=== PATIENT | female | born 1975 | race Caucasian/White ===

== ENCOUNTER 2017-04-30 22:15 | Emergency (ER) | payer OTHER ==
[~2017-04-30] VITALS: Ht 154.9 cm; Wt 68.0 kg
[~2017-04-30 22:15] MED LIST: ACETAMINOPHEN-H1 TA2 PO; ATIVAN1 MG PO; BACTRIM DS 8001 TA1 PO; BACTRIM DS 8001 TAB PO; BENTYL10 MG PO; CEPHALEXIN500 M1 PO; CLEOCIN150 MG PO; CORDROL20 MG PO; DAYPRO600 M1 PO; DEPAKOTE DR500 MG PO; FLEXERIL10 MG PO; GEODON20 MG PO; HYDROCODONE BIT1 T11 PO; IBU800 MG PO; KEFLEX 500 MG E2 CAP PO; LOPRESSOR100 M1 PO; LOPRESSOR25 MG PO; Motrin,Rufen800 MG PO; NAPROSYN500 MG PO; NEURONTIN300 MG PO; NKHM; NORCO 5-325 TA1 EACH PO; NOVAPLUS V0.09 MG/Ac IH; PREDNISONE50 MG PO; RISPERDAL0.25 MG PO; SYMBICORT1 AE1 INH; TOPAMAX100 M1 PO; TOPROL XL100 MG PO; TRAZODO50 MG PO; VALIUM10 MG PO; ZYPREXA15 MG PO
[2017-04-30 22:26] VITALS: BP 121/82
[2017-04-30 23:03] LABS: BASO % 0.3 % (0.0-1.0); EOS % 0.3 % (1.0-4.0); HEMATOCRIT 44.1 % (37.0-47.0); HEMOGLOBIN 15.1 g/dl (12.0-16.0); LYMPH # 1.9 10*3/uL (1.3-4.4); LYMPH % 30.8 % (27.0-41.0); MEAN CELL VOLUME 85.3 fl (81.0-99.0); MEAN CORPUSCULAR HGB 29.2 pg (27.0-31.0); MEAN CORPUSCULAR HGB CONC 34.2 g/dl (33.0-37.0); MEAN PLATELET VOLUME 10.2 fl (9.6-12.3); MONO # 0.4 10*3/uL (0.1-1.0); MONO % 6.5 % (3.0-9.0); NEUT # 3.9 10*3/uL (2.3-7.9); NEUT % 61.8 % (47.0-73.0); PLATELET COUNT AUTOMATED 295 10*3/uL (130-400); RED BLOOD COUNT 5.17 10*6/uL (4.10-5.10); RED CELL DISTRI WIDTH 14.1 % (0-14.5); WHITE BLOOD COUNT 6.3 10*3/uL (4.8-10.8)
[2017-04-30 23:18] LABS: ALBUMIN 3.5 gm/dl (3.1-4.5); ALKALINE PHOSPHATASE 66 U/L (45-117); BUN 8 mg/dl (7-24); CHLORIDE 102 mmol/L (98-107); CREATININE 0.83 mg/dL (0.55-1.02); LIPASE 151 U/L (73-393); POTASSIUM 3.4 mmol/L (3.5-5.1); SGOT/AST 19 IU/L (3-35); SGPT/ALT 19 U/L (12-78); SODIUM 137 mmol/L (136-145)
[2017-05-01] MEDS ORDERED: ROBITUSSIN DM 105 ML PO (00:51)
[2017-05-01] MEDS ORDERED: PREDNISONE20 M1 PO (00:51)
== END 2017-05-01 01:04 | disposition left against medical advice (07) ==
LOC: ED 22:15
PROVIDERS: Nurse Practitioner Family
DX: B34.9 Viral infection, unspecified (principal); F17.200 Nicotine dependence, unspecified, uncomplicated

== ENCOUNTER 2017-09-04 04:40 | Inpatient (IN) | payer OTHER ==
[~2017-09-04] VITALS: Ht 152.4 cm; Wt 79.9 kg
[~2017-09-04 04:40] MED LIST changes: +PREDNISONE20 M1 PO; +ROBITUSSIN DM 105 ML PO
[2017-09-04 04:45] VITALS: BP 127/75
[2017-09-04 05:32] LABS: BASO % 0.2 % (0.0-1.0); EOS # 0.1 10*3/uL (0.0-0.4); EOS % 0.9 % (1.0-4.0); HEMATOCRIT 43.8 % (37.0-47.0); HEMOGLOBIN 14.5 g/dl (12.0-16.0); LYMPH # 2.5 10*3/uL (1.3-4.4); LYMPH % 17.3 % (27.0-41.0); MEAN CELL VOLUME 86.2 fl (81.0-99.0); MEAN CORPUSCULAR HGB 28.5 pg (27.0-31.0); MEAN CORPUSCULAR HGB CONC 33.1 g/dl (33.0-37.0); MEAN PLATELET VOLUME 10.3 fl (9.6-12.3); MONO # 1.3 10*3/uL (0.1-1.0); MONO % 9.1 % (3.0-9.0); NEUT # 10.5 10*3/uL (2.3-7.9); NEUT % 72.1 % (47.0-73.0); PLATELET COUNT AUTOMATED 299 10*3/uL (130-400); RED BLOOD COUNT 5.08 10*6/uL (4.10-5.10); RED CELL DISTRI WIDTH 13.4 % (0-14.5); WHITE BLOOD COUNT 14.6 10*3/uL (4.8-10.8)
[2017-09-04 05:46] LABS: ALBUMIN 3.2 gm/dl (3.1-4.5); ALKALINE PHOSPHATASE 94 U/L (45-117); BUN 6 mg/dl (7-24); CHLORIDE 105 mmol/L (98-107); CREATININE 0.68 mg/dL (0.55-1.02); POTASSIUM 3.7 mmol/L (3.5-5.1); SGOT/AST 83 IU/L (3-35); SGPT/ALT 154 U/L (12-78); SODIUM 137 mmol/L (136-145); TOTAL PROTEIN 8.1 gm/dL (6.4-8.2)
[2017-09-04 06:44] VITALS: BP 96/55; BP 98/56
[2017-09-04 08:00] VITALS: BP 94/61
[2017-09-04 12:00] VITALS: BP 137/65
[2017-09-04 16:00] VITALS: BP 145/66
== END 2017-09-04 18:09 | disposition left against medical advice (07) | DRG 603 ==
LOC: ED 04:40 → 5E 06:36
PROVIDERS: Emergency Medicine
PROC: 0H9DXZZ Drainage of Right Lower Arm Skin, External Approach (ICD-10-PCS; principal; 2017-09-04)
DX: L03.113 Cellulitis of right upper limb (principal); E44.1 Mild protein-calorie malnutrition; E66.01 Morbid (severe) obesity due to excess calories; L02.413 Cutaneous abscess of right upper limb; R74.0 Nonspecific elevation of levels of transaminase and lactic acid dehydrogenase [LDH]; F11.10 Opioid abuse, uncomplicated; F19.10 Other psychoactive substance abuse, uncomplicated; J44.9 Chronic obstructive pulmonary disease, unspecified; F20.9 Schizophrenia, unspecified; F17.210 Nicotine dependence, cigarettes, uncomplicated; I10 Essential (primary) hypertension; F32.9 Major depressive disorder, single episode, unspecified; Z98.891 History of uterine scar from previous surgery; Z98.51 Tubal ligation status; Z71.6 Tobacco abuse counseling; Z82.49 Family history of ischemic heart disease and other diseases of the circulatory system; Z79.899 Other long term (current) drug therapy; Z84.89 Family history of other specified conditions; Z68.34 Body mass index [BMI] 34.0-34.9, adult

== ENCOUNTER 2018-05-23 12:36 | Emergency (ER) | payer OTHER ==
[2018-05-23] MEDS ORDERED: INVEGA SUSTENN117 MG IM (12:40)
[2018-05-23] MEDS ORDERED: PROVENTIL HFA6.7 GM INH (13:18)
[2018-05-23] MEDS ORDERED: NAPROSYN500 MG PO (13:18)
[2018-05-23] MEDS ORDERED: TYLENOL325 M1 PO (13:18)
[2018-05-23] MEDS ORDERED: AMOXICILLIN500 M3 PO (13:18)
== END 2018-05-23 13:20 | disposition home or self-care (01) ==
LOC: ED 12:36
DX: J20.9 Acute bronchitis, unspecified (principal); K02.9 Dental caries, unspecified; I10 Essential (primary) hypertension; J44.9 Chronic obstructive pulmonary disease, unspecified; E78.5 Hyperlipidemia, unspecified; F17.200 Nicotine dependence, unspecified, uncomplicated

== ENCOUNTER 2018-06-07 15:09 | Emergency (ER) | payer OTHER ==
[~2018-06-07] VITALS: Ht 152.4 cm; Wt 90.7 kg
[2018-06-07 15:09] VITALS: BP 108/53
[~2018-06-07 15:09] MED LIST changes: +AMOXICILLIN500 M3 PO; +INVEGA SUSTENN117 MG IM; +PROVENTIL HFA6.7 GM INH; +TYLENOL325 M1 PO
[2018-06-07 17:02] LABS: BASO % 0.3 % (0.0-1.0); EOS # 0.2 10*3/uL (0.0-0.4); EOS % 1.6 % (1.0-4.0); HEMATOCRIT 43.6 % (37.0-47.0); HEMOGLOBIN 14.5 g/dl (12.0-16.0); LYMPH # 2.8 10*3/uL (1.3-4.4); LYMPH % 23.9 % (27.0-41.0); MEAN CELL VOLUME 91.6 fl (81.0-99.0); MEAN CORPUSCULAR HGB 30.5 pg (27.0-31.0); MEAN CORPUSCULAR HGB CONC 33.3 g/dl (33.0-37.0); MEAN PLATELET VOLUME 10.3 fl (9.6-12.3); MONO # 0.9 10*3/uL (0.1-1.0); MONO % 7.5 % (3.0-9.0); NEUT # 7.7 10*3/uL (2.3-7.9); NEUT % 66.4 % (47.0-73.0); PLATELET COUNT AUTOMATED 231 10*3/uL (130-400); RED BLOOD COUNT 4.76 10*6/uL (4.10-5.10); RED CELL DISTRI WIDTH 13.4 % (0-14.5); WHITE BLOOD COUNT 11.6 10*3/uL (4.8-10.8)
[2018-06-07 17:14] LABS: ACT PARTIAL THROMBO TIME 20.4 SECONDS (20.8-31.5); INTERNATIONAL NORM RATIO 1.3 (2.0-3.5)
[2018-06-07 17:28] LABS: ALBUMIN 3.2 gm/dl (3.1-4.5); BUN 10 mg/dl (7-24); CHLORIDE 104 mmol/L (98-107); CREATININE 0.83 mg/dL (0.55-1.02); POTASSIUM 3.7 mmol/L (3.5-5.1); SGOT/AST 54 IU/L (3-35); SGPT/ALT 80 U/L (12-78); SODIUM 136 mmol/L (136-145)
[2018-06-07 17:30] LABS: ALKALINE PHOSPHATASE 76 U/L (45-117); TOTAL PROTEIN 7.6 gm/dL (6.4-8.2)
== END 2018-06-07 19:34 | disposition left against medical advice (07) ==
LOC: ED 15:09
PROVIDERS: Physician Assistant
DX: M54.5 Low back pain (principal); F11.10 Opioid abuse, uncomplicated; F17.200 Nicotine dependence, unspecified, uncomplicated; Z79.899 Other long term (current) drug therapy

== ENCOUNTER 2018-06-12 21:20 | Emergency (ER) | payer OTHER ==
[~2018-06-12] VITALS: Ht 165.1 cm; Wt 104.3 kg
[2018-06-12 21:21] VITALS: BP 117/56
[2018-06-12] MEDS ORDERED: IBU800 MG PO (21:27)
[2018-06-12] MEDS ORDERED: PREDNISONE50 MG PO (21:27)
[2018-06-12] MEDS ORDERED: CYCLOBENZAPRINE10 MG PO (21:27)
[2018-06-12 22:08] LABS: BASO % 0.4 % (0.0-1.0); EOS # 0.2 10*3/uL (0.0-0.4); EOS % 1.9 % (1.0-4.0); HEMATOCRIT 46.5 % (37.0-47.0); HEMOGLOBIN 15.6 g/dl (12.0-16.0); LYMPH # 2.5 10*3/uL (1.3-4.4); LYMPH % 24.6 % (27.0-41.0); MEAN CELL VOLUME 92.1 fl (81.0-99.0); MEAN CORPUSCULAR HGB 30.9 pg (27.0-31.0); MEAN CORPUSCULAR HGB CONC 33.5 g/dl (33.0-37.0); MEAN PLATELET VOLUME 10.4 fl (9.6-12.3); MONO # 0.8 10*3/uL (0.1-1.0); MONO % 7.9 % (3.0-9.0); NEUT # 6.6 10*3/uL (2.3-7.9); NEUT % 64.8 % (47.0-73.0); PLATELET COUNT AUTOMATED 294 10*3/uL (130-400); RED BLOOD COUNT 5.05 10*6/uL (4.10-5.10); RED CELL DISTRI WIDTH 13.5 % (0-14.5); WHITE BLOOD COUNT 10.2 10*3/uL (4.8-10.8)
[2018-06-12 22:27] LABS: ALBUMIN 3.5 gm/dl (3.1-4.5); ALKALINE PHOSPHATASE 77 U/L (45-117); BUN 14 mg/dl (7-24); CHLORIDE 101 mmol/L (98-107); CREATININE 0.95 mg/dL (0.55-1.02); POTASSIUM 3.7 mmol/L (3.5-5.1); SGOT/AST 53 IU/L (3-35); SGPT/ALT 85 U/L (12-78); SODIUM 137 mmol/L (136-145); TOTAL PROTEIN 8.4 gm/dL (6.4-8.2)
== END 2018-06-12 23:39 | disposition home or self-care (01) ==
LOC: ED 21:20
PROVIDERS: Student in an Organized Health Care Education/Training Program
DX: M54.5 Low back pain (principal); R42 Dizziness and giddiness; R20.8 Other disturbances of skin sensation; J44.9 Chronic obstructive pulmonary disease, unspecified; E78.5 Hyperlipidemia, unspecified; I10 Essential (primary) hypertension; M86.9 Osteomyelitis, unspecified; F17.200 Nicotine dependence, unspecified, uncomplicated

== ENCOUNTER 2018-06-17 17:32 | Emergency (ER) | payer OTHER ==
[~2018-06-17] VITALS: Ht 152.4 cm; Wt 90.7 kg
[~2018-06-17 17:32] MED LIST changes: +CYCLOBENZAPRINE10 MG PO
[2018-06-17] MEDS ORDERED: NAPROSYN500 MG PO (19:54)
[2018-06-17] MEDS ORDERED: ROBAXIN500 M1 PO (19:54)
== END 2018-06-17 20:00 | disposition home or self-care (01) ==
LOC: ED 17:32
DX: G89.29 Other chronic pain (principal); M54.5 Low back pain; F17.200 Nicotine dependence, unspecified, uncomplicated

== ENCOUNTER 2019-01-31 19:04 | Inpatient (IN) | payer OTHER ==
[~2019-01-31] VITALS: Ht 152.4 cm; Wt 99.8 kg
[~2019-01-31 19:04] MED LIST changes: +ROBAXIN500 M1 PO
[2019-01-31 19:07] VITALS: BP 111/70
[2019-01-31 19:57] LABS: BASO # 0.1 10*3/uL (0.0-0.1); BASO % 0.4 % (0.0-1.0); EOS # 0.2 10*3/uL (0.0-0.4); EOS % 1.3 % (1.0-4.0); HEMATOCRIT 48.9 % (37.0-47.0); HEMOGLOBIN 15.8 g/dl (12.0-16.0); LYMPH # 3.2 10*3/uL (1.3-4.4); LYMPH % 22.5 % (27.0-41.0); MEAN CELL VOLUME 91.7 fl (81.0-99.0); MEAN CORPUSCULAR HGB 29.6 pg (27.0-31.0); MEAN CORPUSCULAR HGB CONC 32.3 g/dl (33.0-37.0); MEAN PLATELET VOLUME 10.5 fl (9.6-12.3); NEUT # 9.6 10*3/uL (2.3-7.9); NEUT % 68.1 % (47.0-73.0); PLATELET COUNT AUTOMATED 284 10*3/uL (130-400); RED BLOOD COUNT 5.33 10*6/uL (4.10-5.10); RED CELL DISTRI WIDTH 14.2 % (0-14.5); WHITE BLOOD COUNT 14.1 10*3/uL (4.8-10.8)
[2019-01-31 20:11] LABS: ALBUMIN 3.2 gm/dl (3.1-4.5); ALKALINE PHOSPHATASE 68 U/L (45-117); BUN 7 mg/dl (7-24); CHLORIDE 105 mmol/L (98-107); CREATININE 0.77 mg/dL (0.55-1.02); POTASSIUM 3.8 mmol/L (3.5-5.1); SGOT/AST 24 IU/L (3-35); SGPT/ALT 29 U/L (12-78); SODIUM 135 mmol/L (136-145); TOTAL PROTEIN 7.7 gm/dL (6.4-8.2)
--- NOTE | 2019-01-31 20:50 | NUR ---
IV SITE INFILTRATED. STOPPED IV AND REMOVED SITE AT THIS TIME.
[2019-01-31 22:00] VITALS: BP 118/76
--- NOTE | 2019-01-31 22:00 | NUR ---
PATIENT REFUSES PHOTOS OF ABSCESS ON RIGHT HAND
--- NOTE | 2019-01-31 22:38 | NUR ---
Time: 2237 A 43 year old F admitted to under services of ROLF EDDY DO. Pt. arrived via bed from ER. Chief complaint: ABSCESS RIGHT HAND. ADMITS TO IV DRUG ABUSE. KAYLEY BARBOSA
[2019-01-31 22:40] VITALS: BP 122/74
--- NOTE | 2019-01-31 23:28 | NUR ---
MEDICATED WITH NORCO PER PRN ORDER FOR COMPLAINTS OF RIGHT HAND PAIN RATING AN 8. CALL LIGHT WITHIN REACH. WILL MONITOR
[2019-02-01] VITALS: BP 132/67
--- NOTE | 2019-02-01 00:15 | NUR ---
DR MORALES CONTACTED REGARDING PATIENT REQUEST FOR NICOTINE PATCH, NEW ORDERS RECEIVED
--- NOTE | 2019-02-01 01:00 | NUR ---
MEDS EFFECTIVE. SLEEPING. RESPIRATIONS EASY. VSS. CALL LIGHT WITHIN REACH
--- NOTE | 2019-02-01 05:14 | NUR ---
MEDICATED WITH NORCO FOR C/O NECK PAIN.
--- NOTE | 2019-02-01 06:00 | NUR ---
STATES RELIEF FROM EARLIER MEDS. SITTING UP IN BED OVER-LOOKING MENU. RESPIRATIONS EASY. CALL LIGHT WITHIN REACH.
[2019-02-01 06:13] LABS: BASO # 0.1 10*3/uL (0.0-0.1); BASO % 0.4 % (0.0-1.0); EOS # 0.3 10*3/uL (0.0-0.4); EOS % 2.5 % (1.0-4.0); HEMATOCRIT 42.7 % (37.0-47.0); HEMOGLOBIN 13.8 g/dl (12.0-16.0); LYMPH # 4.3 10*3/uL (1.3-4.4); LYMPH % 34.9 % (27.0-41.0); MEAN CELL VOLUME 91.8 fl (81.0-99.0); MEAN CORPUSCULAR HGB 29.7 pg (27.0-31.0); MEAN CORPUSCULAR HGB CONC 32.3 g/dl (33.0-37.0); MEAN PLATELET VOLUME 10.5 fl (9.6-12.3); MONO # 0.9 10*3/uL (0.1-1.0); MONO % 7.2 % (3.0-9.0); NEUT # 6.6 10*3/uL (2.3-7.9); NEUT % 54.2 % (47.0-73.0); PLATELET COUNT AUTOMATED 287 10*3/uL (130-400); RED BLOOD COUNT 4.65 10*6/uL (4.10-5.10); RED CELL DISTRI WIDTH 14.3 % (0-14.5); WHITE BLOOD COUNT 12.2 10*3/uL (4.8-10.8)
[2019-02-01 06:41] LABS: ALBUMIN 2.3 gm/dl (3.1-4.5); BUN 8 mg/dl (7-24); CHLORIDE 110 mmol/L (98-107); CHOLESTEROL 139 mg/dL (<200); SGOT/AST 20 IU/L (3-35); SGPT/ALT 23 U/L (12-78); SODIUM 140 mmol/L (136-145); TOTAL PROTEIN 5.9 gm/dL (6.4-8.2)
[2019-02-01 06:48] LABS: ALKALINE PHOSPHATASE 57 U/L (45-117); HDL CHOLESTEROL 27 mg/dl (40-60); LDL CHOLESTEROL 84 mg/dL (9-159); TRIGLYCERIDES 142 mg/dl (<150); VLDL CHOLESTEROL 28 mg/dL (6-40)
[2019-02-01 06:52] LABS: ACT PARTIAL THROMBO TIME 28.2 SECONDS (20.0-32.1)
[2019-02-01 08:00] VITALS: BP 112/69
[2019-02-01 08:28] LABS: VITAMIN D, 25-HYDROXY 21.9 ng/mL (30-100)
--- NOTE | 2019-02-01 09:24 | NUR ---
NORCO GIVEN FOR C/O PAIN RT HAND. RATES 8/10 ON PAIN SCALE. WILL MONITOR.
--- NOTE | 2019-02-01 09:47 | NUR ---
NOTIFIED DR. LAUREANO OF CONSULT WHICH HE REFUSED. STATED THE CONSULT NEEDED TO GO TO [facility].
--- NOTE | 2019-02-01 09:48 | NUR ---
NOTIFIED DR. RODRIGUEZ THAT SRIDEVI REFUSED CONSULT.
--- NOTE | 2019-02-01 09:58 | NUR ---
DR. ROSENBERG'S ANSWERING SERVICE NOTIFIED OF CONSULT.
--- NOTE | 2019-02-01 10:30 | NUR ---
NORCO NOT EFFECTIVE PER PT.
[2019-02-01 12:00] VITALS: BP 112/67
--- NOTE | 2019-02-01 15:41 | NUR ---
TORADOL GIVEN PER ORDERS FOR C/O RT HAND PAIN. RATES 10/10 ON PAIN SCALE. WILL MONITOR.
[2019-02-01 16:00] VITALS: BP 128/71
--- NOTE | 2019-02-01 17:35 | NUR ---
NORCO GIVEN FOR C/O RT HAND PAIN, RATES 10/10 ON PAIN SCALE. WILL MONITOR.
--- NOTE | 2019-02-01 18:18 | NUR ---
MORPHINE GIVEN FOR C/O RT HAND PAIN. RATES 10/10 ON PAIN SCALE. WILL MONITOR.
--- NOTE | 2019-02-01 19:51 | NUR ---
TORADOL GIVEN PER PATIENT REQUEST FOR PAIN AT AN 810. WILL ASSESS FOR EFFECTIVENESS.
[2019-02-01 20:00] VITALS: BP 140/74
--- NOTE | 2019-02-01 20:51 | NUR ---
PATIENT STATED TORADOL WAS SLIGHTLY EFFECTIVE. PAIN RATED 6/10.
--- NOTE | 2019-02-01 21:32 | NUR ---
NORCO GIVEN PER PATIENT REQUEST. PAIN "ALL OVER" RATED 8/10. WILL ASSESS EFFECTIVENESS.
--- NOTE | 2019-02-01 22:29 | NUR ---
NORCO NOT EFFECTIVE PER PATIENT. PAIN 8/10.
--- NOTE | 2019-02-01 22:40 | NUR ---
MORPHINE GIVEN PER PATIENT REQUEST FOR PAIN "ALL OVER" AT AN 8. WILL ASSESS EFFECTIVENESS.
--- NOTE | 2019-02-01 22:44 | NUR ---
RESTORIL GIVEN PER PATIENT REQUEST FOR COMPLAINTS OF INSOMNIA. WILL ASSESS EFFECTIVENESS.
--- NOTE | 2019-02-01 23:50 | NUR ---
PRN MEDICATIONS EFFECTIVE PER PATIENT.
[2019-02-02] VITALS: BP 133/83
--- NOTE | 2019-02-02 00:33 | NUR ---
24 HR chart check completed.
--- NOTE | 2019-02-02 01:33 | NUR ---
NORCO GIVEN PER PATIENT REQUEST FOR PAIN RATED 8/10. WILL ASSESS EFFECTIVENESS.
--- NOTE | 2019-02-02 01:49 | NUR ---
NICOTINE PATCH FELL OFF. A NEW ONE APPLIED PER PATIENT REQUEST.
--- NOTE | 2019-02-02 02:24 | NUR ---
NORCO SOMEWHAT EFFECTIVE PER PATIENT. PAIN RATED 6/10. WILL CONTINUE TO MONITOR.
--- NOTE | 2019-02-02 02:49 | NUR ---
TORADOL GIVEN PER PATIENT REQUEST FOR PAIN RATED 7/10. WILL ASSESS EFFECTIVENESS.
--- NOTE | 2019-02-02 04:00 | NUR ---
PATIENT STATED TORADOL DID NOT WORK. WILL CONTINUE TO MONITOR.
--- NOTE | 2019-02-02 04:28 | NUR ---
MORPHINE GIVEN PER PATIENT REQUEST FOR PAIN "ALL OVER" RATED 8/10. WILL ASSESS EFFECTIVENESS.
--- NOTE | 2019-02-02 05:36 | NUR ---
PATIENT STATED MORPHINE WAS NOT EFFECTIVE. PAIN RATED 8/10 STILL. NO SIGNS OR SYMPTOMS OF DISTRESS OR DISCOMFORT NOTED. PATIENT WALKING AROUND ROOM. NO GRIMACING NOTED. RESPERATIONS EASY, REGULAR, NO DISTRESS. WILL CONTINUE TO MONITOR.
--- NOTE | 2019-02-02 05:53 | NUR ---
NORCO GIVEN PER PATIENT REQUEST FOR PAIN "ALL OVER" RATED 8/10 PER PATIENT. WILL ASSESS FOR EFFECTIVENESS.
[2019-02-02 06:42] LABS: BASO % 0.3 % (0.0-1.0); EOS # 0.3 10*3/uL (0.0-0.4); EOS % 3.5 % (1.0-4.0); HEMATOCRIT 40.7 % (37.0-47.0); HEMOGLOBIN 13.3 g/dl (12.0-16.0); LYMPH # 3.4 10*3/uL (1.3-4.4); LYMPH % 38.8 % (27.0-41.0); MEAN CELL VOLUME 91.1 fl (81.0-99.0); MEAN CORPUSCULAR HGB 29.8 pg (27.0-31.0); MEAN CORPUSCULAR HGB CONC 32.7 g/dl (33.0-37.0); MEAN PLATELET VOLUME 11.1 fl (9.6-12.3); MONO # 0.9 10*3/uL (0.1-1.0); MONO % 10.6 % (3.0-9.0); NEUT % 46.2 % (47.0-73.0); PLATELET COUNT AUTOMATED 252 10*3/uL (130-400); RED BLOOD COUNT 4.47 10*6/uL (4.10-5.10); RED CELL DISTRI WIDTH 14.2 % (0-14.5); WHITE BLOOD COUNT 8.6 10*3/uL (4.8-10.8)
--- NOTE | 2019-02-02 07:00 | NUR ---
NORCO EFFECTIVE. PATIENT RESTING IN BED. NO SIGNS OR SYMPTOMS OF DISTRESS OR DISCOMFORT. NO GRIMACING OR GUARDING NOTED. RESPIRATIONS EASY, REGULAR. CALL LIGHT WITHIN REACH.
[2019-02-02 08:00] VITALS: BP 124/74
--- NOTE | 2019-02-02 08:38 | NUR ---
MORPHINE GIVEN FOR C/O RT HAND PAIN. RATES 10/10 ON PAIN SCALE. WILL MONITOR.
--- NOTE | 2019-02-02 09:40 | NUR ---
MORPHINE EFFECTIVE PER PT.
--- NOTE | 2019-02-02 10:21 | NUR ---
TORADOL GIVEN FOR C/O RT HAND PAIN. RATES 7/10 ON PAIN SCALE. WILL MONITOR.
--- NOTE | 2019-02-02 11:30 | NUR ---
TORADOL APPEARS EFFECTIVE, PT RESTING IN BED WITH EYES CLOSED. WILL CONTINUE TO MONITOR.
[2019-02-02 12:00] VITALS: BP 110/53
--- NOTE | 2019-02-02 12:12 | NUR ---
MORPHINE GIVEN FOR C/O RT HAND PAIN. RATES 8/10 ON PAIN SCALE. WILL MONITOR.
--- NOTE | 2019-02-02 14:11 | NUR ---
NORCO GIVEN FOR C/O RT HAND PAIN. RATES 8/10 ON PAIN SCALE. WILL MONITOR.
--- NOTE | 2019-02-02 14:59 | NUR ---
NOTIFIED DR. CUELLO THAT PT IS CONSTANTLY ASKING FOR PAIN MEDICATION. PT DOES NOT APPEAR TO BE IN PAIN. STATED THAT SHE WANTED HER IV PAIN MEDS WHEN THEY WERE DO AGAIN AND WAS CONCIDERING SINING OUT AMA. PT EDUCATED BY NURSING STAFF.
[2019-02-02 16:00] VITALS: BP 108/64
--- NOTE | 2019-02-02 16:07 | NUR ---
PT ASKED FOR PAIN MEDICATIONS AT THIS TIME. SHE IS PRESCRIBED MORPHINE AND TORADOL IV, SHE ASKED IF I COULD GIVE THEM BOTH TO HER SINCE THE ARE BOTH DUE. EDUCATED PT THAT ONLY 1 COULD BE GIVEN AT THIS TIME. SHE STATED GIVE ME THE STRONGEST ONE AND THEN I'M SIGNING OUT AMA.
--- NOTE | 2019-02-02 16:13 | NUR ---
MORPHINE GIVEN FOR C/O RT HAND PAIN. RATES 8/10 ON PAIN SCALE. WILL MONITOR.
--- NOTE | 2019-02-02 18:28 | NUR ---
PT REQUESTED AND GIVEN NORCO FOR C/O RIGHT UE PAIN. PT RATES PAIN 8/ WILL MONITOR
--- NOTE | 2019-02-02 18:55 | NUR ---
NOTIFIED OF PATIENT LEAVING AMA.
--- NOTE | 2019-02-02 19:21 | NUR ---
SHIFT DIRECTOR NOTIFIED OF PT LEAVING AMA WITH NO IV SITE/IJ.
== END 2019-02-02 19:44 | disposition left against medical advice (07) | DRG 710 ==
LOC: ED 19:04 → EDHOLD 21:09 → 4E 21:22
PROVIDERS: Hospitalist; Internal Medicine; Nurse Practitioner Family; ADMIT Family Medicine
PROC: 0JBJ0ZZ Excision of Right Hand Subcutaneous Tissue and Fascia, Open Approach (ICD-10-PCS; principal; 2019-02-01)
DX: A41.9 Sepsis, unspecified organism (principal); E43 Unspecified severe protein-calorie malnutrition; I11.0 Hypertensive heart disease with heart failure; I50.32 Chronic diastolic (congestive) heart failure; F20.9 Schizophrenia, unspecified; D68.59 Other primary thrombophilia; J84.10 Pulmonary fibrosis, unspecified; E87.8 Other disorders of electrolyte and fluid balance, not elsewhere classified; Z99.81 Dependence on supplemental oxygen; E87.1 Hypo-osmolality and hyponatremia; I48.0 Paroxysmal atrial fibrillation; Z68.42 Body mass index [BMI] 45.0-49.9, adult; J44.1 Chronic obstructive pulmonary disease with (acute) exacerbation; L03.113 Cellulitis of right upper limb; F32.9 Major depressive disorder, single episode, unspecified; E78.5 Hyperlipidemia, unspecified; M54.5 Low back pain; L02.511 Cutaneous abscess of right hand; K27.9 Peptic ulcer, site unspecified, unspecified as acute or chronic, without hemorrhage or perforation; Z53.29 Procedure and treatment not carried out because of patient's decision for other reasons; D64.9 Anemia, unspecified; R73.9 Hyperglycemia, unspecified; G89.29 Other chronic pain; E55.9 Vitamin D deficiency, unspecified; F17.210 Nicotine dependence, cigarettes, uncomplicated; F11.10 Opioid abuse, uncomplicated; R73.03 Prediabetes; Z98.51 Tubal ligation status; Z82.49 Family history of ischemic heart disease and other diseases of the circulatory system; Z71.6 Tobacco abuse counseling; Z80.9 Family history of malignant neoplasm, unspecified; Z79.01 Long term (current) use of anticoagulants; T80 Complications following infusion, transfusion and therapeutic injection

== ENCOUNTER 2019-10-11 00:27 | Emergency (ER) | payer OTHER ==
[~2019-10-11] VITALS: Ht 167.6 cm; Wt 83.5 kg
[2019-10-11 00:46] VITALS: BP 144/89
[2019-10-11 00:48] LABS: BASO # 0.1 10*3/uL (0.0-0.1); BASO % 0.4 % (0.0-1.0); EOS # 0.3 10*3/uL (0.0-0.4); EOS % 2.2 % (1.0-4.0); HEMATOCRIT 48.1 % (37.0-47.0); LYMPH # 4.7 10*3/uL (1.3-4.4); LYMPH % 34.5 % (27.0-41.0); MEAN CELL VOLUME 90.1 fl (81.0-99.0); MEAN CORPUSCULAR HGB 29.8 pg (27.0-31.0); MEAN CORPUSCULAR HGB CONC 33.1 g/dl (33.0-37.0); MEAN PLATELET VOLUME 10.7 fl (9.6-12.3); MONO # 1.2 10*3/uL (0.1-1.0); MONO % 8.5 % (3.0-9.0); NEUT # 7.4 10*3/uL (2.3-7.9); PLATELET COUNT AUTOMATED 315 10*3/uL (130-400); RED BLOOD COUNT 5.34 10*6/uL (4.10-5.10); RED CELL DISTRI WIDTH 14.3 % (0-14.5); WHITE BLOOD COUNT 13.7 10*3/uL (4.8-10.8)
[2019-10-11 01:04] LABS: ACETAMINOPHEN (TYLENOL) < 5.0 ug/ml (10-30); ALBUMIN 3.5 gm/dl (3.1-4.5); ALKALINE PHOSPHATASE 88 U/L (45-117); BUN 9 mg/dl (7-24); CHLORIDE 103 mmol/L (98-107); CREATININE 0.98 mg/dL (0.55-1.02); ETHYL ALCOHOL < 3.0 mg/dl (<3); POTASSIUM 3.9 mmol/L (3.5-5.1); SGOT/AST 58 IU/L (3-35); SGPT/ALT 96 U/L (12-78); SODIUM 136 mmol/L (136-145)
[2019-10-11 02:57] LABS: BILIRUBIN NEGATIVE (NEGATIVE); BLOOD 3+ (NEGATIVE); CLARITY SL CLOUDY (CLEAR); COLOR YELLOW (YELLOW); GLUCOSE NEGATIVE (NEGATIVE); KETONE NEGATIVE (NEGATIVE); LEUKO ESTERASE 2+ (NEGATIVE); NITRITE NEGATIVE (NEGATIVE); PH 6.5 (5.0-9.0); SPECIFIC GRAVITY 1.005 (1.005-1.030); UROBILINOGEN 0.2 E.U./dl (0.2-1.0)
[2019-10-11 03:02] LABS: WBC 16-20 wbc/hpf (0-5)
[2019-10-11 03:03] LABS: EPITHELIAL CELLS 21-30; RBC 16-20 rbc/hpf (0-2)
[2019-10-11 03:05] LABS: URINE AMPHETAMINES < 1000 (1000ng/ml); URINE BARBITURATES < 200 (200ng/ml); URINE BENZODIAZEPINES < 200 (200ng/ml); URINE CANNABINOIDS (THC) < 50 (50ng/ml); URINE COCAINE > 300 (300ng/ml); URINE METHADONE < 300 (300ng/ml); URINE OPIATES < 300 (300ng/ml); URINE PHENCYCLIDINE < 25 (25ng/ml)
== END 2019-10-11 09:45 | disposition home or self-care (01) ==
LOC: ED 00:27
PROVIDERS: Emergency Medicine
DX: F14.129 Cocaine abuse with intoxication, unspecified (principal); R44.0 Auditory hallucinations; I10 Essential (primary) hypertension; F41.9 Anxiety disorder, unspecified; J44.9 Chronic obstructive pulmonary disease, unspecified; E78.00 Pure hypercholesterolemia, unspecified

== ENCOUNTER 2020-02-21 22:00 | Emergency (ER) | payer OTHER ==
[~2020-02-21] VITALS: Ht 165.1 cm; Wt 68.0 kg
[2020-02-21 22:55] LABS: BASO # 0.1 10*3/uL (0.0-0.1); BASO % 0.5 % (0.0-1.0); EOS # 0.2 10*3/uL (0.0-0.4); HEMATOCRIT 46.3 % (37.0-47.0); LYMPH # 3.3 10*3/uL (1.3-4.4); LYMPH % 30.6 % (27.0-41.0); MEAN CELL VOLUME 89.2 fl (81.0-99.0); MEAN CORPUSCULAR HGB 29.5 pg (27.0-31.0); MEAN PLATELET VOLUME 10.4 fl (9.6-12.3); MONO # 0.9 10*3/uL (0.1-1.0); MONO % 7.8 % (3.0-9.0); NEUT # 6.4 10*3/uL (2.3-7.9); NEUT % 58.6 % (47.0-73.0); PLATELET COUNT AUTOMATED 305 10*3/uL (130-400); RED BLOOD COUNT 5.19 10*6/uL (4.10-5.10); WHITE BLOOD COUNT 10.9 10*3/uL (4.8-10.8)
[2020-02-21 23:12] LABS: ALBUMIN 3.4 gm/dl (3.1-4.5); ALKALINE PHOSPHATASE 77 U/L (45-117); BUN 8 mg/dl (7-24); CHLORIDE 97 mmol/L (98-107); POTASSIUM 3.1 mmol/L (3.5-5.1); SGOT/AST 26 IU/L (3-35); SGPT/ALT 41 U/L (12-78); SODIUM 135 mmol/L (136-145); TOTAL PROTEIN 7.8 gm/dL (6.4-8.2)
[2020-02-21 23:18] LABS: ETHYL ALCOHOL < 3.0 mg/dl (<3)
[2020-02-22 00:13] LABS: BILIRUBIN Negative (Negative); BLOOD Negative (Negative); CLARITY Cloudy (Clear); COLOR Yellow (Yellow); GLUCOSE Negative (Negative); KETONE Negative (Negative); LEUKO ESTERASE 2+ (Negative); NITRITE Negative (Negative); UROBILINOGEN 0.2 E.U./dl (0.0-1.0)
[2020-02-22 00:18] LABS: URINE AMPHETAMINES < 1000 (1000ng/ml); URINE BARBITURATES < 200 (200ng/ml); URINE BENZODIAZEPINES < 200 (200ng/ml); URINE CANNABINOIDS (THC) > 50 (50ng/ml); URINE COCAINE < 300 (300ng/ml); URINE METHADONE < 300 (300ng/ml); URINE OPIATES < 300 (300ng/ml)
[2020-02-22 00:19] LABS: URINE PHENCYCLIDINE < 25 (25ng/ml)
[2020-02-22 00:45] LABS: BACTERIA 1+; EPITHELIAL CELLS 21-30; WBC 16-20 wbc/hpf (0-5)
[2020-02-22 04:10] VITALS: BP 114/64
== END 2020-02-22 09:08 | disposition home or self-care (01) ==
LOC: ED 22:00
PROVIDERS: Internal Medicine
DX: F25.9 Schizoaffective disorder, unspecified (principal)

== ENCOUNTER 2020-03-06 13:59 | Emergency (ER) | payer OTHER ==
[~2020-03-06] VITALS: Ht 152.4 cm; Wt 113.4 kg
[2020-03-06 14:06] VITALS: BP 119/69
[2020-03-06 15:14] LABS: BASO % 0.3 % (0.0-1.0); EOS # 0.4 10*3/uL (0.0-0.4); EOS % 3.4 % (1.0-4.0); HEMATOCRIT 46.1 % (37.0-47.0); LYMPH # 2.6 10*3/uL (1.3-4.4); LYMPH % 24.6 % (27.0-41.0); MEAN CELL VOLUME 90.2 fl (81.0-99.0); MEAN CORPUSCULAR HGB 29.2 pg (27.0-31.0); MEAN CORPUSCULAR HGB CONC 32.3 g/dl (33.0-37.0); MEAN PLATELET VOLUME 10.2 fl (9.6-12.3); MONO # 0.9 10*3/uL (0.1-1.0); MONO % 8.2 % (3.0-9.0); NEUT # 6.7 10*3/uL (2.3-7.9); NEUT % 63.2 % (47.0-73.0); PLATELET COUNT AUTOMATED 315 10*3/uL (130-400); RED BLOOD COUNT 5.11 10*6/uL (4.10-5.10); WHITE BLOOD COUNT 10.5 10*3/uL (4.8-10.8)
[2020-03-06 15:28] LABS: ALBUMIN 3.6 gm/dl (3.1-4.5); ALKALINE PHOSPHATASE 70 U/L (45-117); BUN 10 mg/dl (7-24); CHLORIDE 105 mmol/L (98-107); CREATININE 0.76 mg/dL (0.55-1.02); POTASSIUM 3.8 mmol/L (3.5-5.1); SGOT/AST 30 IU/L (3-35); SGPT/ALT 40 U/L (12-78); SODIUM 137 mmol/L (136-145); TOTAL PROTEIN 7.7 gm/dL (6.4-8.2)
[2020-03-06 15:29] LABS: ACETAMINOPHEN (TYLENOL) < 5.0 ug/ml (10-30)
[2020-03-06 15:37] LABS: ETHYL ALCOHOL < 3.0 mg/dl (<3)
[2020-03-06 16:57] LABS: BILIRUBIN Negative (Negative); BLOOD 3+ (Negative); CLARITY Clear (Clear); COLOR Red (Yellow); GLUCOSE Negative (Negative); KETONE Negative (Negative); LEUKO ESTERASE 2+ (Negative); NITRITE Negative (Negative); SPECIFIC GRAVITY <= 1.005 (1.001-1.030); UROBILINOGEN 0.2 E.U./dl (0.0-1.0)
[2020-03-06 17:05] LABS: URINE AMPHETAMINES < 1000 (1000ng/ml); URINE BARBITURATES < 200 (200ng/ml); URINE BENZODIAZEPINES < 200 (200ng/ml); URINE CANNABINOIDS (THC) < 50 (50ng/ml); URINE COCAINE > 300 (300ng/ml); URINE METHADONE < 300 (300ng/ml); URINE OPIATES < 300 (300ng/ml)
[2020-03-06 17:26] LABS: URINE PHENCYCLIDINE < 25 (25ng/ml)
[2020-03-06 17:34] LABS: BACTERIA TRACE; EPITHELIAL CELLS 0-2; RBC 41-50 rbc/hpf (0-2)
[2020-03-07] MEDS ORDERED: LEVOFLOXACIN500 MG PO (14:01)
== END 2020-03-06 17:55 | disposition home or self-care (01) ==
LOC: ED 13:59
PROVIDERS: Physician Assistant
DX: F25.9 Schizoaffective disorder, unspecified (principal); F31.9 Bipolar disorder, unspecified; I10 Essential (primary) hypertension; F41.9 Anxiety disorder, unspecified; J44.9 Chronic obstructive pulmonary disease, unspecified; E78.00 Pure hypercholesterolemia, unspecified; F17.200 Nicotine dependence, unspecified, uncomplicated; Z79.899 Other long term (current) drug therapy

== ENCOUNTER 2020-03-07 07:20 | Emergency (ER) | payer OTHER ==
[~2020-03-07] VITALS: Ht 152.4 cm; Wt 104.3 kg
[2020-03-07 07:35] VITALS: BP 127/69
[2020-03-07 07:47] LABS: BASO % 0.3 % (0.0-1.0); EOS # 0.2 10*3/uL (0.0-0.4); EOS % 2.2 % (1.0-4.0); HEMATOCRIT 43.7 % (37.0-47.0); LYMPH # 2.9 10*3/uL (1.3-4.4); LYMPH % 26.1 % (27.0-41.0); MEAN CELL VOLUME 90.7 fl (81.0-99.0); MEAN CORPUSCULAR HGB 29.5 pg (27.0-31.0); MEAN CORPUSCULAR HGB CONC 32.5 g/dl (33.0-37.0); MEAN PLATELET VOLUME 10.3 fl (9.6-12.3); MONO # 0.9 10*3/uL (0.1-1.0); MONO % 7.9 % (3.0-9.0); NEUT # 6.9 10*3/uL (2.3-7.9); NEUT % 63.1 % (47.0-73.0); PLATELET COUNT AUTOMATED 291 10*3/uL (130-400); RED BLOOD COUNT 4.82 10*6/uL (4.10-5.10); RED CELL DISTRI WIDTH 13.2 % (0-14.5); WHITE BLOOD COUNT 10.9 10*3/uL (4.8-10.8)
[2020-03-07 08:02] LABS: ALBUMIN 3.2 gm/dl (3.1-4.5); ALKALINE PHOSPHATASE 66 U/L (45-117); BUN 14 mg/dl (7-24); CHLORIDE 110 mmol/L (98-107); POTASSIUM 4.2 mmol/L (3.5-5.1); SGOT/AST 25 IU/L (3-35); SGPT/ALT 35 U/L (12-78); SODIUM 142 mmol/L (136-145); TOTAL PROTEIN 7.3 gm/dL (6.4-8.2)
[2020-03-07 08:05] LABS: ETHYL ALCOHOL < 3.0 mg/dl (<3)
[2020-03-07 09:53] LABS: URINE AMPHETAMINES > 1000 (1000ng/ml); URINE BARBITURATES < 200 (200ng/ml); URINE BENZODIAZEPINES < 200 (200ng/ml); URINE CANNABINOIDS (THC) < 50 (50ng/ml); URINE COCAINE > 300 (300ng/ml); URINE METHADONE < 300 (300ng/ml); URINE OPIATES < 300 (300ng/ml)
[2020-03-07 09:58] LABS: URINE PHENCYCLIDINE < 25 (25ng/ml)
[2020-03-07] MEDS ORDERED: LEVOFLOXACIN500 MG PO (14:01)
== END 2020-03-07 14:17 | disposition home or self-care (01) ==
LOC: ED 07:20
PROVIDERS: Emergency Medicine
DX: J18.9 Pneumonia, unspecified organism (principal); F17.200 Nicotine dependence, unspecified, uncomplicated

== ENCOUNTER 2020-03-09 04:34 | Emergency (ER) | payer OTHER ==
[~2020-03-09] VITALS: Ht 165.1 cm; Wt 102.7 kg
[~2020-03-09 04:34] MED LIST changes: +LEVOFLOXACIN500 MG PO
[2020-03-09 04:51] LABS: BASO % 0.3 % (0.0-1.0); EOS # 0.1 10*3/uL (0.0-0.4); EOS % 0.7 % (1.0-4.0); LYMPH # 3.6 10*3/uL (1.3-4.4); LYMPH % 28.4 % (27.0-41.0); MEAN CELL VOLUME 92.4 fl (81.0-99.0); MEAN CORPUSCULAR HGB 29.4 pg (27.0-31.0); MEAN CORPUSCULAR HGB CONC 31.8 g/dl (33.0-37.0); MEAN PLATELET VOLUME 10.3 fl (9.6-12.3); MONO # 1.1 10*3/uL (0.1-1.0); MONO % 8.5 % (3.0-9.0); NEUT # 7.9 10*3/uL (2.3-7.9); NEUT % 61.7 % (47.0-73.0); PLATELET COUNT AUTOMATED 291 10*3/uL (130-400); RED BLOOD COUNT 4.87 10*6/uL (4.10-5.10); RED CELL DISTRI WIDTH 13.3 % (0-14.5); WHITE BLOOD COUNT 12.7 10*3/uL (4.8-10.8)
[2020-03-09 05:13] LABS: ACETAMINOPHEN (TYLENOL) < 5.0 ug/ml (10-30); ALBUMIN 3.4 gm/dl (3.1-4.5); ALKALINE PHOSPHATASE 61 U/L (45-117); BUN 6 mg/dl (7-24); CHLORIDE 108 mmol/L (98-107); CREATININE 0.95 mg/dL (0.55-1.02); POTASSIUM 3.9 mmol/L (3.5-5.1); SGOT/AST 29 IU/L (3-35); SGPT/ALT 32 U/L (12-78); SODIUM 137 mmol/L (136-145); TOTAL PROTEIN 7.4 gm/dL (6.4-8.2)
[2020-03-09 05:19] LABS: ETHYL ALCOHOL < 3.0 mg/dl (<3)
[2020-03-09 05:20] LABS: BILIRUBIN Negative (Negative); BLOOD 2+ (Negative); CLARITY Clear (Clear); COLOR Yellow (Yellow); GLUCOSE Negative (Negative); KETONE Negative (Negative); LEUKO ESTERASE 3+ (Negative); NITRITE Negative (Negative); SPECIFIC GRAVITY <= 1.005 (1.001-1.030); UROBILINOGEN 0.2 E.U./dl (0.0-1.0)
[2020-03-09 05:27] LABS: EPITHELIAL CELLS 21-30
[2020-03-09 05:29] LABS: RBC 21-30 rbc/hpf (0-2)
[2020-03-09 05:30] LABS: URINE AMPHETAMINES < 1000 (1000ng/ml); URINE BARBITURATES < 200 (200ng/ml); URINE BENZODIAZEPINES < 200 (200ng/ml); URINE CANNABINOIDS (THC) < 50 (50ng/ml); URINE COCAINE > 300 (300ng/ml); URINE METHADONE < 300 (300ng/ml); URINE OPIATES < 300 (300ng/ml)
[2020-03-09 05:31] LABS: URINE PHENCYCLIDINE < 25 (25ng/ml)
[2020-03-09 07:29] VITALS: BP 124/60
== END 2020-03-09 08:43 | disposition left against medical advice (07) ==
LOC: ED 04:34
PROVIDERS: Emergency Medicine
DX: F20.9 Schizophrenia, unspecified (principal); A59.9 Trichomoniasis, unspecified; F31.9 Bipolar disorder, unspecified; J44.9 Chronic obstructive pulmonary disease, unspecified; E78.5 Hyperlipidemia, unspecified; I10 Essential (primary) hypertension; Z79.899 Other long term (current) drug therapy

== ENCOUNTER 2020-03-09 12:03 | Emergency (ER) | payer OTHER ==
[~2020-03-09] VITALS: Ht 152.4 cm; Wt 101.2 kg
[2020-03-09 13:03] LABS: BUN 5 mg/dl (7-24); CHLORIDE 104 mmol/L (98-107); CREATININE 0.86 mg/dL (0.55-1.02); POTASSIUM 3.2 mmol/L (3.5-5.1); SODIUM 136 mmol/L (136-145)
[2020-03-09 13:05] LABS: ETHYL ALCOHOL < 3.0 mg/dl (<3)
[2020-03-09 13:08] LABS: B-hCG (QUALITATIVE) NEGATIVE (NEGATIVE)
[2020-03-09 13:35] LABS: URINE AMPHETAMINES < 1000 (1000ng/ml); URINE BARBITURATES < 200 (200ng/ml); URINE BENZODIAZEPINES < 200 (200ng/ml); URINE CANNABINOIDS (THC) < 50 (50ng/ml); URINE COCAINE > 300 (300ng/ml); URINE METHADONE < 300 (300ng/ml); URINE OPIATES < 300 (300ng/ml); URINE PHENCYCLIDINE < 25 (25ng/ml)
[2020-03-10 05:15] VITALS: BP 126/80
== END 2020-03-10 10:15 | disposition home health service (06) ==
LOC: ED 12:03
PROVIDERS: Emergency Medicine
DX: F29 Unspecified psychosis not due to a substance or known physiological condition (principal); E78.5 Hyperlipidemia, unspecified; J44.9 Chronic obstructive pulmonary disease, unspecified; I10 Essential (primary) hypertension; Z79.899 Other long term (current) drug therapy

== ENCOUNTER 2020-07-15 13:26 | Observation (INO) | payer OTHER ==
[~2020-07-15] VITALS: Ht 160 cm; Wt 95.4 kg
[2020-07-15 13:30] VITALS: BP 134/62
[2020-07-15 14:12] LABS: HEMATOCRIT 43.1 % (37.0-47.0); MEAN CELL VOLUME 87.1 fl (81.0-99.0); MEAN CORPUSCULAR HGB 29.1 pg (27.0-31.0); MEAN CORPUSCULAR HGB CONC 33.4 g/dl (33.0-37.0); PLATELET COUNT AUTOMATED 233 10*3/uL (130-400); RED BLOOD COUNT 4.95 10*6/uL (4.10-5.10); RED CELL DISTRI WIDTH 12.8 % (0-14.5); WHITE BLOOD COUNT 17.8 10*3/uL (4.8-10.8)
[2020-07-15 14:38] LABS: ALKALINE PHOSPHATASE 83 U/L (45-117); BUN 9 mg/dl (7-24); CHLORIDE 86 mmol/L (98-107); CREATININE 0.95 mg/dL (0.55-1.02); SGOT/AST 43 IU/L (3-35); SGPT/ALT 44 U/L (12-78); SODIUM 123 mmol/L (136-145); TOTAL PROTEIN 7.2 gm/dL (6.4-8.2)
[2020-07-15 14:40] LABS: URINE AMPHETAMINES > 1000 (1000ng/ml); URINE BARBITURATES < 200 (200ng/ml); URINE BENZODIAZEPINES < 200 (200ng/ml); URINE CANNABINOIDS (THC) < 50 (50ng/ml); URINE COCAINE < 300 (300ng/ml); URINE METHADONE < 300 (300ng/ml); URINE OPIATES < 300 (300ng/ml)
[2020-07-15 14:49] LABS: URINE PHENCYCLIDINE < 25 (25ng/ml)
[2020-07-15 14:51] LABS: ETHYL ALCOHOL < 3.0 mg/dl (<3); POTASSIUM 2.4 mmol/L (3.5-5.1); TROPONIN I < 0.015 ng/ml (<0.045)
[2020-07-15 15:15] LABS: BILIRUBIN Negative (Negative); BLOOD Negative (Negative); CLARITY Clear (Clear); COLOR Yellow (Yellow); GLUCOSE Negative (Negative); KETONE Negative (Negative); LEUKO ESTERASE Trace (Negative); NITRITE Negative (Negative); SPECIFIC GRAVITY <= 1.005 (1.001-1.030); UROBILINOGEN 0.2 E.U./dl (0.0-1.0)
[2020-07-15 15:24] LABS: BASOPHILS 1 % (0-1); TOTAL CELLS COUNTED 100 #CELLS
[2020-07-15 15:25] LABS: BURR CELLS FEW; PLATELET SUFFICIENCY NORMAL (NORMAL)
[2020-07-15 15:32] LABS: BACTERIA 1+
[2020-07-15 20:35] VITALS: BP 102/48
[2020-07-15 20:52] LABS: BUN 7 mg/dl (7-24); CHLORIDE 98 mmol/L (98-107); CREATININE 0.79 mg/dL (0.55-1.02); POTASSIUM 2.9 mmol/L (3.5-5.1); SODIUM 132 mmol/L (136-145)
[2020-07-16 06:29] LABS: BASO % 0.3 % (0.0-1.0); EOS # 0.1 10*3/uL (0.0-0.4); EOS % 1.2 % (1.0-4.0); HEMATOCRIT 46.3 % (37.0-47.0); LYMPH # 2.3 10*3/uL (1.3-4.4); LYMPH % 26.2 % (27.0-41.0); MEAN CORPUSCULAR HGB 29.5 pg (27.0-31.0); MEAN CORPUSCULAR HGB CONC 33.5 g/dl (33.0-37.0); MEAN PLATELET VOLUME 11.5 fl (9.6-12.3); MONO # 0.8 10*3/uL (0.1-1.0); NEUT # 5.6 10*3/uL (2.3-7.9); NEUT % 62.8 % (47.0-73.0); PLATELET COUNT AUTOMATED 237 10*3/uL (130-400); RED BLOOD COUNT 5.26 10*6/uL (4.10-5.10); RED CELL DISTRI WIDTH 13.2 % (0-14.5); WHITE BLOOD COUNT 8.9 10*3/uL (4.8-10.8)
[2020-07-16 06:44] LABS: ALKALINE PHOSPHATASE 78 U/L (45-117); BUN 6 mg/dl (7-24); CHLORIDE 104 mmol/L (98-107); CREATININE 0.81 mg/dL (0.55-1.02); POTASSIUM 2.9 mmol/L (3.5-5.1); SGOT/AST 38 IU/L (3-35); SGPT/ALT 42 U/L (12-78); SODIUM 138 mmol/L (136-145); TOTAL PROTEIN 7.1 gm/dL (6.4-8.2)
[2020-07-16 08:00] VITALS: BP 107/41
== END 2020-07-16 13:25 | disposition home or self-care (01) ==
LOC: ED 13:26 → 5E 15:49 → EDHOLD 15:49 → 5E 19:13
PROVIDERS: Emergency Medicine; Family Medicine; Internal Medicine; ADMIT Student in an Organized Health Care Education/Training Program; ATTEND Student in an Organized Health Care Education/Training Program
DX: F15.10 Other stimulant abuse, uncomplicated (principal); F29 Unspecified psychosis not due to a substance or known physiological condition; F25.0 Schizoaffective disorder, bipolar type; Z20.822 Contact with and (suspected) exposure to COVID-19; R73.03 Prediabetes; D72.829 Elevated white blood cell count, unspecified; E87.6 Hypokalemia; E87.1 Hypo-osmolality and hyponatremia; E87.8 Other disorders of electrolyte and fluid balance, not elsewhere classified; R74.01 Elevation of levels of liver transaminase levels; F17.210 Nicotine dependence, cigarettes, uncomplicated; Z90.89 Acquired absence of other organs; Z79.899 Other long term (current) drug therapy

== ENCOUNTER 2020-07-24 11:59 | Emergency (ER) | payer OTHER ==
[~2020-07-24] VITALS: Ht 160 cm; Wt 120.2 kg
[2020-07-24 12:07] VITALS: BP 129/61
[2020-07-24 12:46] LABS: BASO % 0.2 % (0.0-1.0); EOS # 0.3 10*3/uL (0.0-0.4); EOS % 3.7 % (1.0-4.0); HEMATOCRIT 42.3 % (37.0-47.0); LYMPH # 2.4 10*3/uL (1.3-4.4); LYMPH % 25.6 % (27.0-41.0); MEAN CELL VOLUME 90.2 fl (81.0-99.0); MEAN CORPUSCULAR HGB 29.4 pg (27.0-31.0); MEAN CORPUSCULAR HGB CONC 32.6 g/dl (33.0-37.0); MEAN PLATELET VOLUME 9.8 fl (9.6-12.3); MONO # 0.9 10*3/uL (0.1-1.0); MONO % 9.4 % (3.0-9.0); NEUT # 5.7 10*3/uL (2.3-7.9); NEUT % 60.8 % (47.0-73.0); PLATELET COUNT AUTOMATED 329 10*3/uL (130-400); RED BLOOD COUNT 4.69 10*6/uL (4.10-5.10); RED CELL DISTRI WIDTH 13.9 % (0-14.5); WHITE BLOOD COUNT 9.3 10*3/uL (4.8-10.8)
[2020-07-24 13:02] LABS: ALBUMIN 2.8 gm/dl (3.1-4.5); ALKALINE PHOSPHATASE 74 U/L (45-117); BUN 4 mg/dl (7-24); CHLORIDE 100 mmol/L (98-107); CREATININE 0.78 mg/dL (0.55-1.02); POTASSIUM 3.7 mmol/L (3.5-5.1); SGOT/AST 35 IU/L (3-35); SGPT/ALT 40 U/L (12-78); SODIUM 136 mmol/L (136-145); TOTAL PROTEIN 6.8 gm/dL (6.4-8.2)
[2020-07-24 13:04] LABS: ACETAMINOPHEN (TYLENOL) < 5.0 ug/ml (10-30); BILIRUBIN Negative (Negative); BLOOD 3+ (Negative); CLARITY Turbid (Clear); COLOR Yellow (Yellow); ETHYL ALCOHOL < 3.0 mg/dl (<3); GLUCOSE Negative (Negative); KETONE Negative (Negative); LEUKO ESTERASE 3+ (Negative); NITRITE Negative (Negative); TROPONIN I < 0.015 ng/ml (<0.045)
[2020-07-24 13:21] LABS: PH 8.5 (4.5-8.0)
[2020-07-24 13:22] LABS: BACTERIA 1+; EPITHELIAL CELLS TNTC; WBC 31-40 wbc/hpf (0-5)
[2020-07-24 13:38] LABS: URINE AMPHETAMINES < 1000 (1000ng/ml); URINE BARBITURATES < 200 (200ng/ml); URINE BENZODIAZEPINES < 200 (200ng/ml); URINE CANNABINOIDS (THC) < 50 (50ng/ml); URINE COCAINE > 300 (300ng/ml); URINE METHADONE < 300 (300ng/ml); URINE OPIATES < 300 (300ng/ml)
[2020-07-24 13:42] LABS: URINE PHENCYCLIDINE < 25 (25ng/ml)
[2020-07-24] MEDS ORDERED: CEFUROXIME AXE500 MG PO (14:02)
== END 2020-07-24 14:25 | disposition home or self-care (01) ==
LOC: ED 11:59
PROVIDERS: Physician Assistant
DX: N39.0 Urinary tract infection, site not specified (principal); F14.10 Cocaine abuse, uncomplicated; F41.9 Anxiety disorder, unspecified; A59.9 Trichomoniasis, unspecified; F17.200 Nicotine dependence, unspecified, uncomplicated; Z98.890 Other specified postprocedural states; Z98.51 Tubal ligation status

== ENCOUNTER 2020-08-11 08:07 | Emergency (ER) | payer OTHER ==
[~2020-08-11] VITALS: Ht 152.4 cm; Wt 90.7 kg
[~2020-08-11 08:07] MED LIST changes: +CEFUROXIME AXE500 MG PO
[2020-08-11 08:24] VITALS: BP 125/86
[2020-08-11 08:33] LABS: BILIRUBIN Negative (Negative); BLOOD 2+ (Negative); CLARITY Clear (Clear); COLOR Yellow (Yellow); GLUCOSE Negative (Negative); KETONE Negative (Negative); LEUKO ESTERASE Negative (Negative); NITRITE Negative (Negative); PH 5.5 (4.5-8.0); SPECIFIC GRAVITY <= 1.005 (1.001-1.030); UROBILINOGEN 0.2 E.U./dl (0.0-1.0)
[2020-08-11 08:55] LABS: WBC 0-2 wbc/hpf (0-5)
[2020-08-11 09:15] LABS: BASO # 0.1 10*3/uL (0.0-0.1); BASO % 0.5 % (0.0-1.0); EOS # 0.3 10*3/uL (0.0-0.4); EOS % 2.1 % (1.0-4.0); HEMATOCRIT 41.1 % (37.0-47.0); LYMPH # 3.8 10*3/uL (1.3-4.4); LYMPH % 28.6 % (27.0-41.0); MEAN CELL VOLUME 88.4 fl (81.0-99.0); MEAN CORPUSCULAR HGB 29.7 pg (27.0-31.0); MEAN CORPUSCULAR HGB CONC 33.6 g/dl (33.0-37.0); MEAN PLATELET VOLUME 10.1 fl (9.6-12.3); MONO % 7.7 % (3.0-9.0); PLATELET COUNT AUTOMATED 335 10*3/uL (130-400); RED BLOOD COUNT 4.65 10*6/uL (4.10-5.10); WHITE BLOOD COUNT 13.3 10*3/uL (4.8-10.8)
[2020-08-11 09:29] LABS: ALBUMIN 2.9 gm/dl (3.1-4.5); ALKALINE PHOSPHATASE 68 U/L (45-117); BUN 4 mg/dl (7-24); CHLORIDE 106 mmol/L (98-107); CREATININE 0.72 mg/dL (0.55-1.02); LIPASE 91 U/L (73-393); POTASSIUM 3.7 mmol/L (3.5-5.1); SGOT/AST 30 IU/L (3-35); SGPT/ALT 36 U/L (12-78); SODIUM 135 mmol/L (136-145); TOTAL PROTEIN 6.6 gm/dL (6.4-8.2)
[2020-08-11] MEDS ORDERED: SEPTDS PO (13:07)
== END 2020-08-11 13:34 | disposition home or self-care (01) ==
LOC: ED 08:07
PROVIDERS: Internal Medicine
DX: N39.0 Urinary tract infection, site not specified (principal); F17.200 Nicotine dependence, unspecified, uncomplicated; F14.90 Cocaine use, unspecified, uncomplicated; Z98.890 Other specified postprocedural states; Z98.51 Tubal ligation status

== ENCOUNTER 2020-09-26 03:04 | Emergency (ER) | payer OTHER ==
[~2020-09-26 03:04] MED LIST changes: +SEPTDS PO
[2020-09-26 03:16] VITALS: BP 138/82
[2020-09-26 03:23] LABS: BILIRUBIN Negative (Negative); BLOOD Negative (Negative); CLARITY Clear (Clear); COLOR Yellow (Yellow); GLUCOSE Negative (Negative); KETONE Negative (Negative); LEUKO ESTERASE Negative (Negative); NITRITE Negative (Negative); PH 7.5 (4.5-8.0); SPECIFIC GRAVITY <= 1.005 (1.001-1.030)
[2020-09-26 03:25] LABS: BASO # 0.1 10*3/uL (0.0-0.1); BASO % 0.5 % (0.0-1.0); EOS # 0.2 10*3/uL (0.0-0.4); EOS % 1.6 % (1.0-4.0); LYMPH # 3.7 10*3/uL (1.3-4.4); LYMPH % 27.5 % (27.0-41.0); MEAN CELL VOLUME 88.3 fl (81.0-99.0); MEAN CORPUSCULAR HGB 29.8 pg (27.0-31.0); MEAN CORPUSCULAR HGB CONC 33.7 g/dl (33.0-37.0); MEAN PLATELET VOLUME 10.8 fl (9.6-12.3); MONO # 1.2 10*3/uL (0.1-1.0); MONO % 8.6 % (3.0-9.0); NEUT # 8.3 10*3/uL (2.3-7.9); NEUT % 61.4 % (47.0-73.0); PLATELET COUNT AUTOMATED 351 10*3/uL (130-400); RED BLOOD COUNT 5.21 10*6/uL (4.10-5.10); RED CELL DISTRI WIDTH 13.9 % (0-14.5); WHITE BLOOD COUNT 13.4 10*3/uL (4.8-10.8)
[2020-09-26 03:31] LABS: RBC 0-2 rbc/hpf (0-2); URINE AMPHETAMINES < 1000 (1000ng/ml); URINE BARBITURATES < 200 (200ng/ml); URINE BENZODIAZEPINES < 200 (200ng/ml); URINE CANNABINOIDS (THC) > 50 (50ng/ml); URINE COCAINE > 300 (300ng/ml); URINE METHADONE < 300 (300ng/ml); URINE OPIATES < 300 (300ng/ml); URINE PHENCYCLIDINE < 25 (25ng/ml); WBC 0-2 wbc/hpf (0-5)
[2020-09-26 03:39] LABS: ALBUMIN 3.5 gm/dl (3.1-4.5); ALKALINE PHOSPHATASE 77 U/L (45-117); BUN 8 mg/dl (7-24); CHLORIDE 103 mmol/L (98-107); CREATININE 0.89 mg/dL (0.55-1.02); POTASSIUM 3.8 mmol/L (3.5-5.1); SGOT/AST 35 IU/L (3-35); SGPT/ALT 48 U/L (12-78); SODIUM 135 mmol/L (136-145); TOTAL PROTEIN 7.8 gm/dL (6.4-8.2)
[2020-09-26 03:45] LABS: TROPONIN I < 0.015 ng/ml (<0.045)
== END 2020-09-26 06:22 | disposition home or self-care (01) ==
LOC: ED 03:04
PROVIDERS: Internal Medicine
DX: F14.90 Cocaine use, unspecified, uncomplicated (principal); D72.829 Elevated white blood cell count, unspecified; G89.29 Other chronic pain; F12.90 Cannabis use, unspecified, uncomplicated; Z79.899 Other long term (current) drug therapy; Z98.890 Other specified postprocedural states

== ENCOUNTER 2020-10-22 02:49 | Emergency (ER) | payer OTHER ==
[~2020-10-22] VITALS: Wt 93.4 kg
[2020-10-22 03:08] LABS: BASO # 0.1 10*3/uL (0.0-0.1); BASO % 0.4 % (0.0-1.0); EOS # 0.2 10*3/uL (0.0-0.4); HEMATOCRIT 42.6 % (37.0-47.0); LYMPH # 4.6 10*3/uL (1.3-4.4); LYMPH % 29.4 % (27.0-41.0); MEAN CELL VOLUME 89.7 fl (81.0-99.0); MEAN CORPUSCULAR HGB 29.5 pg (27.0-31.0); MEAN CORPUSCULAR HGB CONC 32.9 g/dl (33.0-37.0); MEAN PLATELET VOLUME 10.4 fl (9.6-12.3); MONO % 6.6 % (3.0-9.0); NEUT # 9.6 10*3/uL (2.3-7.9); NEUT % 62.2 % (47.0-73.0); PLATELET COUNT AUTOMATED 350 10*3/uL (130-400); RED BLOOD COUNT 4.75 10*6/uL (4.10-5.10); RED CELL DISTRI WIDTH 14.6 % (0-14.5); WHITE BLOOD COUNT 15.5 10*3/uL (4.8-10.8)
[2020-10-22 03:24] LABS: ALBUMIN 3.4 gm/dl (3.1-4.5); ALKALINE PHOSPHATASE 75 U/L (45-117); BUN 5 mg/dl (7-24); CHLORIDE 107 mmol/L (98-107); CPK 146 U/L (26-192); CREATININE 0.71 mg/dL (0.55-1.02); POTASSIUM 2.7 mmol/L (3.5-5.1); SGOT/AST 41 IU/L (3-35); SGPT/ALT 56 U/L (12-78); SODIUM 137 mmol/L (136-145); TOTAL PROTEIN 7.3 gm/dL (6.4-8.2)
[2020-10-22 03:28] LABS: ACETAMINOPHEN (TYLENOL) < 5.0 ug/ml (10-30)
[2020-10-22 13:00] LABS: BILIRUBIN Negative (Negative); BLOOD 3+ (Negative); CLARITY Clear (Clear); COLOR Yellow (Yellow); GLUCOSE Negative (Negative); KETONE Negative (Negative); LEUKO ESTERASE 1+ (Negative); NITRITE Negative (Negative); SPECIFIC GRAVITY 1.015 (1.001-1.030)
[2020-10-22 13:09] LABS: URINE AMPHETAMINES < 1000 (1000ng/ml); URINE BARBITURATES < 200 (200ng/ml); URINE BENZODIAZEPINES < 200 (200ng/ml); URINE CANNABINOIDS (THC) > 50 (50ng/ml); URINE COCAINE > 300 (300ng/ml); URINE METHADONE < 300 (300ng/ml); URINE OPIATES < 300 (300ng/ml)
[2020-10-22 13:11] LABS: URINE PHENCYCLIDINE < 25 (25ng/ml)
[2020-10-22 13:12] LABS: BACTERIA 2+; MUCOUS 2+; RBC 16-20 rbc/hpf (0-2)
[2020-10-22 19:12] VITALS: BP 128/78
== END 2020-10-22 21:49 ==
LOC: ED 02:49
PROVIDERS: Internal Medicine
DX: F25.9 Schizoaffective disorder, unspecified (principal); Z20.822 Contact with and (suspected) exposure to COVID-19; F31.9 Bipolar disorder, unspecified; F17.200 Nicotine dependence, unspecified, uncomplicated; Z98.890 Other specified postprocedural states; Z98.51 Tubal ligation status

== ENCOUNTER 2020-12-01 08:16 | Emergency (ER) | payer OTHER ==
[~2020-12-01] VITALS: Ht 152.4 cm; Wt 90.3 kg
[2020-12-01 08:43] LABS: BASO # 0.1 10*3/uL (0.0-0.1); BASO % 0.4 % (0.0-1.0); EOS # 0.3 10*3/uL (0.0-0.4); EOS % 2.3 % (1.0-4.0); HEMATOCRIT 43.1 % (37.0-47.0); LYMPH # 4.6 10*3/uL (1.3-4.4); LYMPH % 33.6 % (27.0-41.0); MEAN CORPUSCULAR HGB 29.6 pg (27.0-31.0); MEAN CORPUSCULAR HGB CONC 32.9 g/dl (33.0-37.0); MONO # 1.1 10*3/uL (0.1-1.0); MONO % 7.9 % (3.0-9.0); NEUT # 7.5 10*3/uL (2.3-7.9); NEUT % 55.4 % (47.0-73.0); PLATELET COUNT AUTOMATED 290 10*3/uL (130-400); RED BLOOD COUNT 4.79 10*6/uL (4.10-5.10); RED CELL DISTRI WIDTH 14.1 % (0-14.5); WHITE BLOOD COUNT 13.6 10*3/uL (4.8-10.8)
[2020-12-01 08:56] LABS: BILIRUBIN Negative (Negative); BLOOD Negative (Negative); CLARITY Cloudy (Clear); COLOR Yellow (Yellow); GLUCOSE Negative (Negative); KETONE Negative (Negative); LEUKO ESTERASE Negative (Negative); NITRITE Negative (Negative)
[2020-12-01 08:59] LABS: ALBUMIN 3.5 gm/dl (3.1-4.5); ALKALINE PHOSPHATASE 76 U/L (45-117); BUN 12 mg/dl (7-24); CHLORIDE 108 mmol/L (98-107); CREATININE 0.69 mg/dL (0.55-1.02); POTASSIUM 4.5 mmol/L (3.5-5.1); SGOT/AST 34 IU/L (3-35); SGPT/ALT 41 U/L (12-78); SODIUM 136 mmol/L (136-145); TOTAL PROTEIN 7.5 gm/dL (6.4-8.2)
[2020-12-01 09:02] LABS: ACETAMINOPHEN (TYLENOL) < 5.0 ug/ml (10-30); BETA-HCG, QUANT < 1.0 mIU/mL (1-3)
[2020-12-01 09:03] LABS: URINE AMPHETAMINES > 1000 (1000ng/ml); URINE BARBITURATES < 200 (200ng/ml); URINE BENZODIAZEPINES < 200 (200ng/ml); URINE CANNABINOIDS (THC) < 50 (50ng/ml); URINE COCAINE > 300 (300ng/ml); URINE METHADONE < 300 (300ng/ml); URINE OPIATES < 300 (300ng/ml)
[2020-12-01 09:08] LABS: URINE PHENCYCLIDINE < 25 (25ng/ml)
[2020-12-01 09:08] LABS: ETHYL ALCOHOL < 3.0 mg/dl (<3)
[2020-12-01 09:18] LABS: BACTERIA 1+; EPITHELIAL CELLS 21-30; MUCOUS 1+
[2020-12-01 18:03] VITALS: BP 103/55
== END 2020-12-01 18:35 ==
LOC: ED 08:16
PROVIDERS: Emergency Medicine
DX: F25.9 Schizoaffective disorder, unspecified (principal); Z20.822 Contact with and (suspected) exposure to COVID-19; F17.200 Nicotine dependence, unspecified, uncomplicated

== ENCOUNTER 2020-12-25 19:50 | Emergency (ER) | payer OTHER ==
[2020-12-25 20:15] LABS: EOS % 0.2 % (1.0-4.0); MEAN CORPUSCULAR HGB 29.3 pg (27.0-31.0); MEAN PLATELET VOLUME 10.4 fl (9.6-12.3); MONO # 0.3 10*3/uL (0.1-1.0); RED CELL DISTRI WIDTH 13.7 % (0-14.5)
[2020-12-25 20:33] LABS: ACETAMINOPHEN (TYLENOL) 11.1 ug/ml (10-30)
[2020-12-25 20:38] LABS: ETHYL ALCOHOL < 3.0 mg/dl (<3)
[2020-12-25 21:36] LABS: BUN 8 mg/dl (7-24); CREATININE 0.59 mg/dL (0.55-1.02)
[2020-12-25 21:37] LABS: SODIUM 141 mmol/L (136-145)
[2020-12-25 21:38] LABS: CHLORIDE 109 mmol/L (98-107)
[2020-12-25 21:40] LABS: TOTAL PROTEIN 5.7 gm/dL (6.4-8.2)
[2020-12-25 21:41] LABS: ALBUMIN 2.6 gm/dl (3.1-4.5); SGOT/AST 31 IU/L (3-35)
[2020-12-25 21:42] LABS: ALKALINE PHOSPHATASE 59 U/L (45-117); SGPT/ALT 42 U/L (12-78)
[2020-12-25 21:43] LABS: TROPONIN I < 0.015 ng/ml (<0.045)
[2020-12-25 21:54] LABS: WHITE BLOOD COUNT 16.7 10*3/uL (4.8-10.8)
[2020-12-25 21:55] LABS: RED BLOOD COUNT 4.34 10*6/uL (4.10-5.10)
[2020-12-25 22:01] LABS: HEMATOCRIT 39.3 % (37.0-47.0); MEAN CELL VOLUME 90.6 fl (81.0-99.0)
[2020-12-25 22:02] LABS: MEAN CORPUSCULAR HGB CONC 32.6 g/dl (33.0-37.0); PLATELET COUNT AUTOMATED 252 10*3/uL (130-400)
[2020-12-25 22:03] LABS: NEUT % 79.1 % (47.0-73.0)
[2020-12-25 22:04] LABS: LYMPH % 17.2 % (27.0-41.0)
[2020-12-25 22:05] LABS: NEUT # 13.2 10*3/uL (2.3-7.9)
[2020-12-25 22:06] LABS: LYMPH # 2.9 10*3/uL (1.3-4.4)
[2020-12-25 23:06] LABS: BILIRUBIN Negative (Negative); BLOOD Negative (Negative); CLARITY Clear (Clear); COLOR Yellow (Yellow); GLUCOSE Negative (Negative); KETONE Negative (Negative); LEUKO ESTERASE Negative (Negative); NITRITE Negative (Negative); SPECIFIC GRAVITY <= 1.005 (1.001-1.030); UROBILINOGEN 0.2 E.U./dl (0.0-1.0)
[2020-12-25 23:17] LABS: URINE AMPHETAMINES > 1000 (1000ng/ml); URINE BARBITURATES < 200 (200ng/ml); URINE BENZODIAZEPINES < 200 (200ng/ml); URINE CANNABINOIDS (THC) < 50 (50ng/ml); URINE COCAINE > 300 (300ng/ml); URINE METHADONE < 300 (300ng/ml); URINE OPIATES < 300 (300ng/ml)
[2020-12-25 23:22] LABS: BACTERIA TRACE; RBC 0-2 rbc/hpf (0-2); URINE PHENCYCLIDINE < 25 (25ng/ml); WBC 0-2 wbc/hpf (0-5)
[2020-12-26 02:25] VITALS: BP 122/64
== END 2020-12-26 04:14 | disposition home or self-care (01) ==
LOC: ED 19:50
PROVIDERS: Nurse Practitioner Family
DX: T40.5X1A Poisoning by cocaine, accidental (unintentional), initial encounter (principal); T40.1X1A Poisoning by heroin, accidental (unintentional), initial encounter; R20.8 Other disturbances of skin sensation; E87.6 Hypokalemia; F31.9 Bipolar disorder, unspecified; F20.9 Schizophrenia, unspecified; I10 Essential (primary) hypertension; J44.9 Chronic obstructive pulmonary disease, unspecified; F17.200 Nicotine dependence, unspecified, uncomplicated; Z98.890 Other specified postprocedural states; Z98.51 Tubal ligation status; Y92.89 Other specified places as the place of occurrence of the external cause

== ENCOUNTER 2021-03-26 07:45 | Emergency (ER) | payer OTHER ==
[2021-03-26 07:56] VITALS: BP 115/72
[2021-03-26 08:15] LABS: BASO # 0.1 10*3/uL (0.0-0.1); BASO % 0.4 % (0.0-1.0); EOS # 0.1 10*3/uL (0.0-0.4); EOS % 0.8 % (1.0-4.0); HEMATOCRIT 44.7 % (37.0-47.0); LYMPH # 2.3 10*3/uL (1.3-4.4); LYMPH % 14.4 % (27.0-41.0); MEAN CORPUSCULAR HGB 29.3 pg (27.0-31.0); MEAN CORPUSCULAR HGB CONC 33.3 g/dl (33.0-37.0); MEAN PLATELET VOLUME 10.2 fl (9.6-12.3); MONO # 1.1 10*3/uL (0.1-1.0); NEUT # 12.2 10*3/uL (2.3-7.9); NEUT % 76.9 % (47.0-73.0); PLATELET COUNT AUTOMATED 321 10*3/uL (130-400); RED BLOOD COUNT 5.08 10*6/uL (4.10-5.10); RED CELL DISTRI WIDTH 14.2 % (0-14.5); WHITE BLOOD COUNT 15.9 10*3/uL (4.8-10.8)
[2021-03-26 08:33] LABS: ALBUMIN 3.3 gm/dl (3.1-4.5); ALKALINE PHOSPHATASE 74 U/L (45-117); BUN 15 mg/dl (7-24); CHLORIDE 106 mmol/L (98-107); CPK 75 U/L (26-192); CREATININE 0.81 mg/dL (0.55-1.02); POTASSIUM 3.8 mmol/L (3.5-5.1); SGOT/AST 35 IU/L (3-35); SGPT/ALT 60 U/L (12-78); SODIUM 135 mmol/L (136-145); TOTAL PROTEIN 7.8 gm/dL (6.4-8.2)
[2021-03-26 08:36] LABS: ETHYL ALCOHOL < 3.0 mg/dl (<3)
[2021-03-26 08:42] LABS: BILIRUBIN Negative (Negative); BLOOD Negative (Negative); CLARITY Clear (Clear); COLOR Yellow (Yellow); GLUCOSE Negative (Negative); KETONE Negative (Negative); LEUKO ESTERASE Negative (Negative); NITRITE Negative (Negative); PH 6.5 (4.5-8.0); UROBILINOGEN 0.2 E.U./dl (0.0-1.0)
[2021-03-26 08:58] LABS: BACTERIA 2+; EPITHELIAL CELLS 0-2; WBC 0-2 wbc/hpf (0-5)
[2021-03-26 09:05] LABS: URINE AMPHETAMINES < 1000 (1000ng/ml); URINE BARBITURATES < 200 (200ng/ml); URINE BENZODIAZEPINES < 200 (200ng/ml); URINE CANNABINOIDS (THC) < 50 (50ng/ml); URINE COCAINE < 300 (300ng/ml); URINE METHADONE < 300 (300ng/ml); URINE OPIATES < 300 (300ng/ml)
[2021-03-26 09:06] LABS: URINE PHENCYCLIDINE < 25 (25ng/ml)
== END 2021-03-26 16:15 ==
LOC: ED 07:45
PROVIDERS: Emergency Medicine
DX: F25.0 Schizoaffective disorder, bipolar type (principal); Z20.822 Contact with and (suspected) exposure to COVID-19; E78.5 Hyperlipidemia, unspecified; J44.9 Chronic obstructive pulmonary disease, unspecified; I10 Essential (primary) hypertension; F17.200 Nicotine dependence, unspecified, uncomplicated

== ENCOUNTER 2021-04-14 14:55 | Emergency (ER) | payer OTHER ==
[2021-04-14 14:57] VITALS: BP 118/89
[2021-04-14 15:51] LABS: BASO % 0.3 % (0.0-1.0); EOS # 0.2 10*3/uL (0.0-0.4); EOS % 2.1 % (1.0-4.0); HEMATOCRIT 47.1 % (37.0-47.0); LYMPH # 3.7 10*3/uL (1.3-4.4); LYMPH % 31.6 % (27.0-41.0); MEAN CORPUSCULAR HGB 29.7 pg (27.0-31.0); MEAN CORPUSCULAR HGB CONC 33.3 g/dl (33.0-37.0); MEAN PLATELET VOLUME 10.4 fl (9.6-12.3); MONO # 0.8 10*3/uL (0.1-1.0); MONO % 6.9 % (3.0-9.0); NEUT # 6.8 10*3/uL (2.3-7.9); NEUT % 58.5 % (47.0-73.0); PLATELET COUNT AUTOMATED 326 10*3/uL (130-400); RED BLOOD COUNT 5.29 10*6/uL (4.10-5.10); RED CELL DISTRI WIDTH 14.4 % (0-14.5); WHITE BLOOD COUNT 11.6 10*3/uL (4.8-10.8)
[2021-04-14 16:10] LABS: ALBUMIN 3.5 gm/dl (3.1-4.5); ALKALINE PHOSPHATASE 75 U/L (45-117); BUN 11 mg/dl (7-24); CHLORIDE 108 mmol/L (98-107); CPK 66 U/L (26-192); CREATININE 0.84 mg/dL (0.55-1.02); POTASSIUM 3.8 mmol/L (3.5-5.1); SGOT/AST 19 IU/L (3-35); SGPT/ALT 22 U/L (12-78); SODIUM 136 mmol/L (136-145); TOTAL PROTEIN 8.5 gm/dL (6.4-8.2)
[2021-04-14 16:14] LABS: ACETAMINOPHEN (TYLENOL) < 5.0 ug/ml (10-30); ETHYL ALCOHOL < 3.0 mg/dl (<3)
[2021-04-14 19:45] LABS: BILIRUBIN 1+ (Negative); BLOOD Negative (Negative); CLARITY Cloudy (Clear); COLOR Dark Yellow (Yellow); GLUCOSE Negative (Negative); KETONE 1+ (Negative); LEUKO ESTERASE Trace (Negative); NITRITE Negative (Negative); SPECIFIC GRAVITY >= 1.030 (1.001-1.030)
[2021-04-14 19:53] LABS: URINE AMPHETAMINES > 1000 (1000ng/ml); URINE BARBITURATES < 200 (200ng/ml); URINE BENZODIAZEPINES < 200 (200ng/ml); URINE CANNABINOIDS (THC) < 50 (50ng/ml); URINE COCAINE > 300 (300ng/ml); URINE METHADONE < 300 (300ng/ml); URINE OPIATES < 300 (300ng/ml)
[2021-04-14 19:55] LABS: URINE PHENCYCLIDINE < 25 (25ng/ml)
[2021-04-14 20:07] LABS: BACTERIA 1+; EPITHELIAL CELLS TNTC; MUCOUS 1+; RBC 0-2 rbc/hpf (0-2)
[2021-04-14] MEDS ORDERED: BUPRENORPHINE-1 EAC1 SL (21:16)
[2021-04-14] MEDS ORDERED: ARIPIPRAZOLE10 MG PO (21:17)
== END 2021-04-15 00:30 ==
LOC: ED 14:55
PROVIDERS: Physician Assistant
DX: F25.0 Schizoaffective disorder, bipolar type (principal); Z20.822 Contact with and (suspected) exposure to COVID-19; F17.200 Nicotine dependence, unspecified, uncomplicated; Z79.899 Other long term (current) drug therapy; Z98.890 Other specified postprocedural states; Z98.51 Tubal ligation status

== ENCOUNTER 2021-05-28 10:18 | Emergency (ER) | payer OTHER ==
[~2021-05-28] VITALS: Ht 144.7 cm; Wt 90.3 kg
[~2021-05-28 10:18] MED LIST changes: +ARIPIPRAZOLE10 MG PO; +BUPRENORPHINE-1 EAC1 SL
[2021-05-28 10:26] VITALS: BP 122/66
[2021-05-28 10:52] LABS: BILIRUBIN Negative (Negative); BLOOD Negative (Negative); CLARITY Clear (Clear); COLOR Dark Yellow (Yellow); GLUCOSE Negative (Negative); KETONE Trace (Negative); LEUKO ESTERASE Trace (Negative); NITRITE Negative (Negative); SPECIFIC GRAVITY 1.025 (1.001-1.030)
[2021-05-28 10:52] LABS: BASO % 0.3 % (0.0-1.0); EOS # 0.1 10*3/uL (0.0-0.4); EOS % 0.7 % (1.0-4.0); HEMATOCRIT 46.7 % (37.0-47.0); LYMPH # 3.5 10*3/uL (1.3-4.4); LYMPH % 25.2 % (27.0-41.0); MEAN CELL VOLUME 86.6 fl (81.0-99.0); MEAN CORPUSCULAR HGB 29.9 pg (27.0-31.0); MEAN CORPUSCULAR HGB CONC 34.5 g/dl (33.0-37.0); MEAN PLATELET VOLUME 10.8 fl (9.6-12.3); MONO # 1.1 10*3/uL (0.1-1.0); MONO % 8.2 % (3.0-9.0); NEUT # 9.1 10*3/uL (2.3-7.9); NEUT % 65.2 % (47.0-73.0); PLATELET COUNT AUTOMATED 427 10*3/uL (130-400); RED BLOOD COUNT 5.39 10*6/uL (4.10-5.10)
[2021-05-28 11:01] LABS: URINE AMPHETAMINES < 1000 (1000ng/ml); URINE BARBITURATES < 200 (200ng/ml); URINE BENZODIAZEPINES < 200 (200ng/ml); URINE CANNABINOIDS (THC) < 50 (50ng/ml); URINE COCAINE > 300 (300ng/ml); URINE METHADONE < 300 (300ng/ml); URINE OPIATES < 300 (300ng/ml)
[2021-05-28 11:09] LABS: BACTERIA TRACE; MUCOUS 2+
[2021-05-28 11:09] LABS: ALKALINE PHOSPHATASE 82 U/L (45-117); BUN 13 mg/dl (7-24); CHLORIDE 100 mmol/L (98-107); CREATININE 0.83 mg/dL (0.55-1.02); LIPASE 109 U/L (73-393); POTASSIUM 3.1 mmol/L (3.5-5.1); SGOT/AST 43 IU/L (3-35); SGPT/ALT 76 U/L (12-78); SODIUM 138 mmol/L (136-145)
[2021-05-28 11:10] LABS: URINE PHENCYCLIDINE < 25 (25ng/ml)
[2021-05-28] MEDS ORDERED: ZOFRAN4 MG PO (12:26)
== END 2021-05-28 12:24 | disposition home or self-care (01) ==
LOC: ED 10:18
PROVIDERS: Emergency Medicine
DX: R19.7 Diarrhea, unspecified (principal); R11.2 Nausea with vomiting, unspecified; E87.6 Hypokalemia; Z79.899 Other long term (current) drug therapy; Z98.51 Tubal ligation status; Z98.890 Other specified postprocedural states; Z87.891 Personal history of nicotine dependence

== ENCOUNTER 2021-05-29 17:01 | Emergency (ER) | payer OTHER ==
[~2021-05-29] VITALS: Ht 144.7 cm; Wt 86.2 kg
[~2021-05-29 17:01] MED LIST changes: +ZOFRAN4 MG PO
[2021-05-29 17:06] VITALS: BP 131/57
== END 2021-05-29 19:04 | disposition home or self-care (01) ==
LOC: ED 17:01
DX: A08.4 Viral intestinal infection, unspecified (principal); Z79.899 Other long term (current) drug therapy; Z98.890 Other specified postprocedural states; Z98.51 Tubal ligation status; Z87.891 Personal history of nicotine dependence

== ENCOUNTER 2021-07-14 15:53 | Emergency (ER) | payer OTHER ==
[~2021-07-14] VITALS: Wt 86.2 kg
[2021-07-14 16:00] VITALS: BP 148/74
[2021-07-14 18:51] LABS: BASO % 0.4 % (0.0-1.0); EOS # 0.3 10*3/uL (0.0-0.4); EOS % 2.9 % (1.0-4.0); HEMATOCRIT 40.2 % (37.0-47.0); LYMPH # 3.1 10*3/uL (1.3-4.4); LYMPH % 31.8 % (27.0-41.0); MEAN CELL VOLUME 91.2 fl (81.0-99.0); MEAN CORPUSCULAR HGB 29.9 pg (27.0-31.0); MEAN CORPUSCULAR HGB CONC 32.8 g/dl (33.0-37.0); MEAN PLATELET VOLUME 10.5 fl (9.6-12.3); MONO # 0.7 10*3/uL (0.1-1.0); MONO % 7.6 % (3.0-9.0); NEUT # 5.5 10*3/uL (2.3-7.9); PLATELET COUNT AUTOMATED 268 10*3/uL (130-400); RED BLOOD COUNT 4.41 10*6/uL (4.10-5.10); RED CELL DISTRI WIDTH 14.5 % (0-14.5); WHITE BLOOD COUNT 9.6 10*3/uL (4.8-10.8)
[2021-07-14 19:13] LABS: ALKALINE PHOSPHATASE 59 U/L (45-117); BUN 5 mg/dl (7-24); CHLORIDE 107 mmol/L (98-107); CREATININE 0.65 mg/dL (0.55-1.02); POTASSIUM 3.7 mmol/L (3.5-5.1); SGOT/AST 40 IU/L (3-35); SGPT/ALT 58 U/L (12-78); SODIUM 139 mmol/L (136-145)
== END 2021-07-14 21:19 | disposition home or self-care (01) ==
LOC: ED 15:53
PROVIDERS: Internal Medicine
DX: L84 Corns and callosities (principal); Z79.899 Other long term (current) drug therapy; Z98.890 Other specified postprocedural states; Z87.891 Personal history of nicotine dependence; Z98.51 Tubal ligation status

== ENCOUNTER 2021-08-28 20:54 | Emergency (ER) | payer OTHER ==
[~2021-08-28] VITALS: Ht 154.9 cm; Wt 89.8 kg
[2021-08-28 21:14] LABS: BILIRUBIN Negative (Negative); BLOOD 1+ (Negative); CLARITY Clear (Clear); COLOR Yellow (Yellow); GLUCOSE Negative (Negative); KETONE Negative (Negative); LEUKO ESTERASE Negative (Negative); NITRITE Negative (Negative); PH 5.5 (4.5-8.0); SPECIFIC GRAVITY <= 1.005 (1.001-1.030)
[2021-08-28 21:23] LABS: URINE AMPHETAMINES < 1000 (1000ng/ml); URINE BARBITURATES < 200 (200ng/ml); URINE BENZODIAZEPINES < 200 (200ng/ml); URINE CANNABINOIDS (THC) < 50 (50ng/ml); URINE COCAINE > 300 (300ng/ml); URINE METHADONE < 300 (300ng/ml); URINE OPIATES < 300 (300ng/ml)
[2021-08-28 21:24] LABS: URINE PHENCYCLIDINE < 25 (25ng/ml)
[2021-08-28 21:25] LABS: BASO % 0.3 % (0.0-1.0); EOS # 0.3 10*3/uL (0.0-0.4); HEMATOCRIT 42.7 % (37.0-47.0); LYMPH # 4.1 10*3/uL (1.3-4.4); LYMPH % 27.9 % (27.0-41.0); MEAN CELL VOLUME 88.4 fl (81.0-99.0); MEAN PLATELET VOLUME 10.5 fl (9.6-12.3); MONO # 1.2 10*3/uL (0.1-1.0); MONO % 8.3 % (3.0-9.0); NEUT # 8.9 10*3/uL (2.3-7.9); PLATELET COUNT AUTOMATED 293 10*3/uL (130-400); RED BLOOD COUNT 4.83 10*6/uL (4.10-5.10); WHITE BLOOD COUNT 14.6 10*3/uL (4.8-10.8)
[2021-08-28 21:41] LABS: ALKALINE PHOSPHATASE 78 U/L (45-117); BUN 7 mg/dl (7-24); CHLORIDE 106 mmol/L (98-107); CREATININE 0.79 mg/dL (0.55-1.02); POTASSIUM 3.3 mmol/L (3.5-5.1); SGOT/AST 33 IU/L (3-35); SGPT/ALT 56 U/L (12-78); SODIUM 137 mmol/L (136-145); TOTAL PROTEIN 7.3 gm/dL (6.4-8.2)
[2021-08-28 21:45] LABS: ACETAMINOPHEN (TYLENOL) < 5.0 ug/ml (10-30); ETHYL ALCOHOL < 3.0 mg/dl (<3)
[2021-08-29 07:48] VITALS: BP 110/48
== END 2021-08-29 09:14 | disposition home or self-care (01) ==
LOC: ED 20:54
PROVIDERS: Internal Medicine
DX: F25.0 Schizoaffective disorder, bipolar type (principal); Z79.899 Other long term (current) drug therapy

== ENCOUNTER 2021-11-30 17:09 | Emergency (ER) | payer OTHER ==
[~2021-11-30] VITALS: Wt 90.3 kg
[2021-11-30 17:24] VITALS: BP 116/70
[2021-11-30 20:31] LABS: BILIRUBIN 1+ (Negative); BLOOD Negative (Negative); CLARITY Cloudy (Clear); COLOR Dark Yellow (Yellow); GLUCOSE Negative (Negative); KETONE Trace (Negative); LEUKO ESTERASE Trace (Negative); NITRITE Negative (Negative); SPECIFIC GRAVITY >= 1.030 (1.001-1.030)
[2021-11-30] MEDS ORDERED: VIBRAMYCIN100 MG PO (20:33)
[2021-11-30 20:46] LABS: BACTERIA 1+; FINE GRANULAR CAST 0-2; MUCOUS 2+
[2021-12-03] MEDS ORDERED: VIBRAMYCIN100 MG PO (11:40)
== END 2021-11-30 20:38 | disposition home or self-care (01) ==
LOC: ED 17:09
PROVIDERS: Physician Assistant
DX: Z20.2 Contact with and (suspected) exposure to infections with a predominantly sexual mode of transmission (principal); Z79.899 Other long term (current) drug therapy; Z98.890 Other specified postprocedural states; Z98.51 Tubal ligation status; F17.200 Nicotine dependence, unspecified, uncomplicated

== ENCOUNTER 2021-12-11 04:42 | Emergency (ER) | payer OTHER ==
[~2021-12-11 04:42] MED LIST changes: +VIBRAMYCIN100 MG PO
[2021-12-11 04:48] VITALS: BP 158/91
[2021-12-11 05:44] LABS: ALKALINE PHOSPHATASE 68 U/L (45-117); BUN 10 mg/dl (7-24); CHLORIDE 105 mmol/L (98-107); CREATININE 0.67 mg/dL (0.55-1.02); SGOT/AST 43 IU/L (3-35); SGPT/ALT 43 U/L (12-78); SODIUM 139 mmol/L (136-145); TOTAL PROTEIN 7.1 gm/dL (6.4-8.2)
[2021-12-11 05:45] LABS: ACETAMINOPHEN (TYLENOL) < 5.0 ug/ml (10-30); ETHYL ALCOHOL < 3.0 mg/dl (<3); POTASSIUM 3.9 mmol/L (3.5-5.1)
[2021-12-11 06:03] LABS: BASO % 0.2 % (0.0-1.0); EOS # 0.2 10*3/uL (0.0-0.4); EOS % 1.7 % (1.0-4.0); HEMATOCRIT 43.4 % (37.0-47.0); LYMPH # 4.1 10*3/uL (1.3-4.4); LYMPH % 38.8 % (27.0-41.0); MEAN CELL VOLUME 91.4 fl (81.0-99.0); MEAN CORPUSCULAR HGB 30.1 pg (27.0-31.0); MEAN CORPUSCULAR HGB CONC 32.9 g/dl (33.0-37.0); MONO % 9.4 % (3.0-9.0); NEUT # 5.1 10*3/uL (2.3-7.9); NEUT % 49.1 % (47.0-73.0); PLATELET COUNT AUTOMATED 234 10*3/uL (130-400); RED BLOOD COUNT 4.75 10*6/uL (4.10-5.10); RED CELL DISTRI WIDTH 14.1 % (0-14.5); WHITE BLOOD COUNT 10.5 10*3/uL (4.8-10.8)
[2021-12-11 08:27] LABS: BILIRUBIN Negative (Negative); BLOOD Negative (Negative); CLARITY Clear (Clear); COLOR Yellow (Yellow); GLUCOSE Negative (Negative); KETONE Negative (Negative); LEUKO ESTERASE Negative (Negative); NITRITE Negative (Negative); PH 6.5 (4.5-8.0); SPECIFIC GRAVITY <= 1.005 (1.001-1.030); UROBILINOGEN 0.2 E.U./dl (0.0-1.0)
[2021-12-11 08:36] LABS: BACTERIA TRACE; RBC 0-2 rbc/hpf (0-2); WBC 0-2 wbc/hpf (0-5)
[2021-12-11 08:37] LABS: URINE AMPHETAMINES > 1000 (1000ng/ml); URINE BARBITURATES < 200 (200ng/ml); URINE BENZODIAZEPINES < 200 (200ng/ml); URINE CANNABINOIDS (THC) < 50 (50ng/ml); URINE COCAINE > 300 (300ng/ml); URINE METHADONE < 300 (300ng/ml); URINE OPIATES < 300 (300ng/ml); URINE PHENCYCLIDINE < 25 (25ng/ml)
== END 2021-12-11 10:59 | disposition home or self-care (01) ==
LOC: ED 04:42
PROVIDERS: Emergency Medicine
DX: F19.10 Other psychoactive substance abuse, uncomplicated (principal); E78.5 Hyperlipidemia, unspecified; I10 Essential (primary) hypertension; J44.9 Chronic obstructive pulmonary disease, unspecified; Z98.890 Other specified postprocedural states; Z98.51 Tubal ligation status; Z79.899 Other long term (current) drug therapy

== ENCOUNTER 2022-01-22 01:08 | Emergency (ER) | payer OTHER ==
[~2022-01-22] VITALS: Ht 167.6 cm; Wt 89.8 kg
[2022-01-22 01:12] VITALS: BP 105/55
== END 2022-01-22 03:41 | disposition left against medical advice (07) ==
LOC: ED 01:08
DX: M25.552 Pain in left hip (principal); M25.512 Pain in left shoulder; R07.81 Pleurodynia; J44.9 Chronic obstructive pulmonary disease, unspecified; I10 Essential (primary) hypertension; E78.5 Hyperlipidemia, unspecified; F17.200 Nicotine dependence, unspecified, uncomplicated; Z79.899 Other long term (current) drug therapy; Z98.890 Other specified postprocedural states; Z98.51 Tubal ligation status

== ENCOUNTER 2022-06-07 07:21 | Emergency (ER) | payer OTHER ==
[~2022-06-07] VITALS: Ht 144.7 cm; Wt 74.4 kg
[2022-06-07 07:51] VITALS: BP 104/55
[2022-06-07 08:04] LABS: BASO # 0.1 10*3/uL (0.0-0.1); BASO % 0.4 % (0.0-1.0); EOS # 0.4 10*3/uL (0.0-0.4); EOS % 3.2 % (1.0-4.0); HEMATOCRIT 44.8 % (37.0-47.0); LYMPH # 3.9 10*3/uL (1.3-4.4); LYMPH % 33.6 % (27.0-41.0); MEAN CELL VOLUME 91.8 fl (81.0-99.0); MEAN CORPUSCULAR HGB 30.3 pg (27.0-31.0); MEAN PLATELET VOLUME 10.5 fl (9.6-12.3); MONO # 1.1 10*3/uL (0.1-1.0); MONO % 9.7 % (3.0-9.0); NEUT # 6.1 10*3/uL (2.3-7.9); NEUT % 52.8 % (47.0-73.0); PLATELET COUNT AUTOMATED 314 10*3/uL (130-400); RED BLOOD COUNT 4.88 10*6/uL (4.10-5.10); RED CELL DISTRI WIDTH 13.6 % (0-14.5); WHITE BLOOD COUNT 11.6 10*3/uL (4.8-10.8)
[2022-06-07 08:21] LABS: ALKALINE PHOSPHATASE 66 U/L (46-116); BUN 12 mg/dl (9-23); CHLORIDE 102 mmol/L (98-107); CPK 183 U/L (34-171); POTASSIUM 3.5 mmol/L (3.4-5.1); SGPT/ALT 38 U/L (10-49); TOTAL PROTEIN 7.5 gm/dL (6.0-8.0)
[2022-06-07 08:22] LABS: ETHYL ALCOHOL < 3.0 mg/dl (<3)
[2022-06-07 08:27] LABS: BILIRUBIN Negative (Negative); BLOOD Trace-Lysed (Negative); CLARITY Clear (Clear); COLOR Yellow (Yellow); GLUCOSE Negative (Negative); KETONE Negative (Negative); LEUKO ESTERASE Negative (Negative); NITRITE Negative (Negative); PH 6.5 (4.5-8.0); SPECIFIC GRAVITY <= 1.005 (1.001-1.030); UROBILINOGEN 0.2 E.U./dl (0.0-1.0)
[2022-06-07 08:34] LABS: URINE AMPHETAMINES Positive (1000ng/ml); URINE BARBITURATES Negative (200ng/ml); URINE BENZODIAZEPINES Negative (200ng/ml); URINE CANNABINOIDS (THC) Negative (50ng/ml); URINE COCAINE Positive (300ng/ml); URINE METHADONE Negative (300ng/ml); URINE OPIATES Negative (300ng/ml); URINE PHENCYCLIDINE Negative (25ng/ml)
[2022-06-07 08:50] LABS: EPITHELIAL CELLS 0-2
[2022-06-07 08:51] LABS: RBC 0-2 rbc/hpf (0-2); WBC 0-2 wbc/hpf (0-5)
== END 2022-06-07 08:37 | disposition home or self-care (01) ==
LOC: ED 07:21
PROVIDERS: Internal Medicine
DX: F25.0 Schizoaffective disorder, bipolar type (principal); I10 Essential (primary) hypertension; J44.9 Chronic obstructive pulmonary disease, unspecified; Z98.890 Other specified postprocedural states; Z98.51 Tubal ligation status; Z72.0 Tobacco use; Z20.822 Contact with and (suspected) exposure to COVID-19

== ENCOUNTER 2022-08-15 03:29 | Emergency (ER) | payer OTHER ==
[~2022-08-15] VITALS: Ht 162.5 cm; Wt 68.9 kg
[2022-08-15 03:34] VITALS: BP 171/79
== END 2022-08-15 04:56 | disposition home or self-care (01) ==
LOC: ED 03:29
DX: F19.10 Other psychoactive substance abuse, uncomplicated (principal); F41.9 Anxiety disorder, unspecified; I10 Essential (primary) hypertension; J44.9 Chronic obstructive pulmonary disease, unspecified; Z98.51 Tubal ligation status; Z98.890 Other specified postprocedural states; Z72.0 Tobacco use

== ENCOUNTER 2022-09-20 13:02 | Inpatient (IN) | payer OTHER ==
[2022-09-20 13:05] VITALS: BP 112/67
[2022-09-20 13:54] LABS: BASO % 0.2 % (0.0-1.0); EOS # 0.1 10*3/uL (0.0-0.4); HEMATOCRIT 48.6 % (37.0-47.0); LYMPH # 1.6 10*3/uL (1.3-4.4); LYMPH % 17.5 % (27.0-41.0); MEAN CELL VOLUME 90.7 fl (81.0-99.0); MEAN CORPUSCULAR HGB 30.8 pg (27.0-31.0); MEAN PLATELET VOLUME 10.2 fl (9.6-12.3); MONO # 0.7 10*3/uL (0.1-1.0); MONO % 7.2 % (3.0-9.0); NEUT # 6.7 10*3/uL (2.3-7.9); NEUT % 73.9 % (47.0-73.0); PLATELET COUNT AUTOMATED 320 10*3/uL (130-400); RED BLOOD COUNT 5.36 10*6/uL (4.10-5.10); RED CELL DISTRI WIDTH 14.2 % (0-14.5); WHITE BLOOD COUNT 9.1 10*3/uL (4.8-10.8)
[2022-09-20 14:24] LABS: ALKALINE PHOSPHATASE 73 U/L (46-116); BUN 7 mg/dl (9-23); CHLORIDE 92 mmol/L (98-107); POTASSIUM 2.8 mmol/L (3.4-5.1); SGPT/ALT 156 U/L (10-49); TOTAL PROTEIN 7.9 gm/dL (6.0-8.0)
[2022-09-20 14:25] LABS: ETHYL ALCOHOL < 3.0 mg/dl (<3)
[2022-09-20 17:10] VITALS: BP 102/70
[2022-09-20 18:36] VITALS: BP 109/67
[2022-09-20 19:56] LABS: BILIRUBIN Negative (Negative); BLOOD Negative (Negative); CLARITY Clear (Clear); COLOR Yellow (Yellow); GLUCOSE Negative (Negative); KETONE Negative (Negative); LEUKO ESTERASE Negative (Negative); NITRITE Negative (Negative)
[2022-09-20 20:03] LABS: PH 8.5 (4.5-8.0); URINE AMPHETAMINES Negative (1000ng/ml); URINE BARBITURATES Negative (200ng/ml); URINE BENZODIAZEPINES Negative (200ng/ml); URINE CANNABINOIDS (THC) Positive (50ng/ml); URINE COCAINE Positive (300ng/ml); URINE METHADONE Negative (300ng/ml); URINE OPIATES Negative (300ng/ml); URINE PHENCYCLIDINE Negative (25ng/ml)
[2022-09-20 20:08] LABS: WBC 0-2 wbc/hpf (0-5)
[2022-09-20 20:09] LABS: FINE GRANULAR CAST 0-2; MUCOUS 1+
[2022-09-21 00:11] VITALS: BP 110/70
[2022-09-21 05:29] LABS: ALKALINE PHOSPHATASE 64 U/L (46-116); BUN 7 mg/dl (9-23); CHLORIDE 96 mmol/L (98-107); POTASSIUM 3.1 mmol/L (3.4-5.1); SGPT/ALT 137 U/L (10-49); TOTAL PROTEIN 7.1 gm/dL (6.0-8.0)
[2022-09-21 06:11] LABS: BASO # 0.1 10*3/uL (0.0-0.1); BASO % 0.4 % (0.0-1.0); EOS # 0.3 10*3/uL (0.0-0.4); EOS % 2.4 % (1.0-4.0); LYMPH # 3.5 10*3/uL (1.3-4.4); LYMPH % 29.3 % (27.0-41.0); MEAN CELL VOLUME 94.3 fl (81.0-99.0); MEAN CORPUSCULAR HGB 30.3 pg (27.0-31.0); MEAN CORPUSCULAR HGB CONC 32.1 g/dl (33.0-37.0); MEAN PLATELET VOLUME 10.9 fl (9.6-12.3); MONO # 1.1 10*3/uL (0.1-1.0); MONO % 9.5 % (3.0-9.0); PLATELET COUNT AUTOMATED 326 10*3/uL (130-400); RED BLOOD COUNT 5.09 10*6/uL (4.10-5.10); RED CELL DISTRI WIDTH 14.6 % (0-14.5)
== END 2022-09-21 06:11 | disposition left against medical advice (07) | DRG 770 ==
LOC: ED 13:02 → EDHOLD 16:56
PROVIDERS: Internal Medicine; Physician Assistant; ADMIT Internal Medicine; ATTEND Internal Medicine
DX: F10.139 Alcohol abuse with withdrawal, unspecified (principal); E87.8 Other disorders of electrolyte and fluid balance, not elsewhere classified; D75.1 Secondary polycythemia; R74.01 Elevation of levels of liver transaminase levels; E87.6 Hypokalemia; Z53.29 Procedure and treatment not carried out because of patient's decision for other reasons; F11.10 Opioid abuse, uncomplicated; Y90.9 Presence of alcohol in blood, level not specified; Z82.49 Family history of ischemic heart disease and other diseases of the circulatory system

== ENCOUNTER 2022-10-09 23:02 | Emergency (ER) | payer OTHER ==
[~2022-10-09] VITALS: Wt 77.1 kg
[2022-10-10 01:50] VITALS: BP 100/52
[2022-10-10 02:08] LABS: BASO # 0.1 10*3/uL (0.0-0.1); BASO % 0.5 % (0.0-1.0); EOS # 0.2 10*3/uL (0.0-0.4); EOS % 1.1 % (1.0-4.0); LYMPH # 4.7 10*3/uL (1.3-4.4); LYMPH % 29.4 % (27.0-41.0); MEAN CELL VOLUME 91.1 fl (81.0-99.0); MEAN CORPUSCULAR HGB 31.8 pg (27.0-31.0); MEAN CORPUSCULAR HGB CONC 34.9 g/dl (33.0-37.0); MEAN PLATELET VOLUME 10.4 fl (9.6-12.3); MONO # 1.2 10*3/uL (0.1-1.0); MONO % 7.6 % (3.0-9.0); NEUT # 9.7 10*3/uL (2.3-7.9); NEUT % 60.9 % (47.0-73.0); PLATELET COUNT AUTOMATED 307 10*3/uL (130-400); RED CELL DISTRI WIDTH 13.9 % (0-14.5); WHITE BLOOD COUNT 15.9 10*3/uL (4.8-10.8)
[2022-10-10 02:31] LABS: ALKALINE PHOSPHATASE 68 U/L (46-116); BUN 10 mg/dl (9-23); CHLORIDE 107 mmol/L (98-107); POTASSIUM 3.1 mmol/L (3.4-5.1); SGPT/ALT 58 U/L (10-49); TOTAL PROTEIN 6.5 gm/dL (6.0-8.0)
[2022-10-10 02:32] LABS: ETHYL ALCOHOL < 3.0 mg/dl (<3)
== END 2022-10-10 14:06 | disposition home or self-care (01) ==
LOC: ED 23:02
PROVIDERS: Internal Medicine
DX: F20.9 Schizophrenia, unspecified (principal); E87.6 Hypokalemia; F15.10 Other stimulant abuse, uncomplicated; I10 Essential (primary) hypertension; J44.9 Chronic obstructive pulmonary disease, unspecified; G31.9 Degenerative disease of nervous system, unspecified

== ENCOUNTER 2022-10-12 22:03 | Emergency (ER) | payer OTHER ==
[~2022-10-12] VITALS: Ht 167.6 cm; Wt 70.3 kg
[2022-10-12 22:05] VITALS: BP 111/76
== END 2022-10-13 00:24 | disposition home or self-care (01) ==
LOC: ED 22:03
DX: M79.672 Pain in left foot (principal); M79.671 Pain in right foot; G89.29 Other chronic pain; I10 Essential (primary) hypertension; J44.9 Chronic obstructive pulmonary disease, unspecified; F31.9 Bipolar disorder, unspecified; F41.9 Anxiety disorder, unspecified; Z98.890 Other specified postprocedural states; Z98.51 Tubal ligation status; F10.10 Alcohol abuse, uncomplicated; F17.200 Nicotine dependence, unspecified, uncomplicated; F19.10 Other psychoactive substance abuse, uncomplicated

== ENCOUNTER 2022-10-15 08:18 | Emergency (ER) | payer OTHER ==
[~2022-10-15] VITALS: Ht 144.7 cm; Wt 95.3 kg
[2022-10-15 08:30] VITALS: BP 107/75
== END 2022-10-15 09:06 | disposition home or self-care (01) ==
LOC: ED 08:18
DX: M79.671 Pain in right foot (principal); G89.29 Other chronic pain; I10 Essential (primary) hypertension; J44.9 Chronic obstructive pulmonary disease, unspecified; F31.9 Bipolar disorder, unspecified; Z98.890 Other specified postprocedural states; Z98.51 Tubal ligation status; F10.10 Alcohol abuse, uncomplicated; F17.200 Nicotine dependence, unspecified, uncomplicated; F19.10 Other psychoactive substance abuse, uncomplicated

== ENCOUNTER 2022-10-16 08:02 | Emergency (ER) | payer OTHER ==
[~2022-10-16] VITALS: Wt 49.9 kg
[2022-10-16 08:06] VITALS: BP 116/48
[2022-10-16 08:41] LABS: BASO % 0.3 % (0.0-1.0); EOS # 0.3 10*3/uL (0.0-0.4); EOS % 3.3 % (1.0-4.0); HEMATOCRIT 46.3 % (37.0-47.0); LYMPH # 2.5 10*3/uL (1.3-4.4); LYMPH % 25.4 % (27.0-41.0); MEAN CELL VOLUME 96.1 fl (81.0-99.0); MEAN CORPUSCULAR HGB 31.1 pg (27.0-31.0); MEAN CORPUSCULAR HGB CONC 32.4 g/dl (33.0-37.0); MEAN PLATELET VOLUME 10.2 fl (9.6-12.3); MONO # 0.9 10*3/uL (0.1-1.0); MONO % 8.7 % (3.0-9.0); NEUT # 6.1 10*3/uL (2.3-7.9); NEUT % 61.8 % (47.0-73.0); PLATELET COUNT AUTOMATED 335 10*3/uL (130-400); RED BLOOD COUNT 4.82 10*6/uL (4.10-5.10); RED CELL DISTRI WIDTH 14.1 % (0-14.5); WHITE BLOOD COUNT 9.9 10*3/uL (4.8-10.8)
[2022-10-16 09:14] LABS: ALKALINE PHOSPHATASE 64 U/L (46-116); BUN 8 mg/dl (9-23); CHLORIDE 109 mmol/L (98-107); POTASSIUM 3.6 mmol/L (3.4-5.1); SGPT/ALT 76 U/L (10-49); TOTAL PROTEIN 6.3 gm/dL (6.0-8.0)
[2022-10-16 09:16] LABS: BETA-HCG, QUANT < 3.0 mIU/mL (3-10)
== END 2022-10-16 11:46 | disposition left against medical advice (07) ==
LOC: ED 08:02
PROVIDERS: Emergency Medicine
DX: M54.50 Low back pain, unspecified (principal); I10 Essential (primary) hypertension; J44.9 Chronic obstructive pulmonary disease, unspecified; F31.9 Bipolar disorder, unspecified; Z20.822 Contact with and (suspected) exposure to COVID-19; Z98.51 Tubal ligation status; Z98.890 Other specified postprocedural states; Z72.0 Tobacco use; F19.10 Other psychoactive substance abuse, uncomplicated

== ENCOUNTER 2022-10-18 02:14 | Emergency (ER) | payer OTHER ==
[~2022-10-18] VITALS: Ht 149.8 cm; Wt 63.5 kg
[2022-10-18 02:26] VITALS: BP 96/46
[2022-10-18 03:05] LABS: BASO # 0.1 10*3/uL (0.0-0.1); BASO % 0.4 % (0.0-1.0); EOS # 0.1 10*3/uL (0.0-0.4); EOS % 0.6 % (1.0-4.0); HEMATOCRIT 46.7 % (37.0-47.0); LYMPH % 21.4 % (27.0-41.0); MEAN CELL VOLUME 93.6 fl (81.0-99.0); MEAN CORPUSCULAR HGB 30.5 pg (27.0-31.0); MEAN CORPUSCULAR HGB CONC 32.5 g/dl (33.0-37.0); MEAN PLATELET VOLUME 10.1 fl (9.6-12.3); MONO % 7.4 % (3.0-9.0); NEUT # 9.6 10*3/uL (2.3-7.9); NEUT % 69.7 % (47.0-73.0); PLATELET COUNT AUTOMATED 349 10*3/uL (130-400); RED BLOOD COUNT 4.99 10*6/uL (4.10-5.10); RED CELL DISTRI WIDTH 14.3 % (0-14.5); WHITE BLOOD COUNT 13.9 10*3/uL (4.8-10.8)
[2022-10-18 03:15] LABS: ACT PARTIAL THROMBO TIME 23.7 SECONDS (20.0-32.1)
[2022-10-18 03:38] LABS: ALKALINE PHOSPHATASE 65 U/L (46-116); BUN 12 mg/dl (9-23); CHLORIDE 105 mmol/L (98-107); CPK 71 U/L (34-171); LIPASE 26 U/L (12-53); POTASSIUM 3.8 mmol/L (3.4-5.1); SGPT/ALT 95 U/L (10-49); TOTAL PROTEIN 7.2 gm/dL (6.0-8.0)
== END 2022-10-18 05:26 | disposition left against medical advice (07) ==
LOC: ED 02:14
PROVIDERS: Internal Medicine
DX: F20.9 Schizophrenia, unspecified (principal); F17.200 Nicotine dependence, unspecified, uncomplicated; Z98.890 Other specified postprocedural states; Z98.51 Tubal ligation status; Z53.29 Procedure and treatment not carried out because of patient's decision for other reasons

== ENCOUNTER 2022-11-13 09:27 | Emergency (ER) | payer OTHER ==
[~2022-11-13] VITALS: Wt 81.6 kg
[2022-11-13 09:37] VITALS: BP 100/56
[2022-11-13 10:19] LABS: HEMATOCRIT 43.8 % (37.0-47.0); MEAN CELL VOLUME 91.6 fl (81.0-99.0); MEAN CORPUSCULAR HGB 31.2 pg (27.0-31.0); MEAN PLATELET VOLUME 10.6 fl (9.6-12.3); PLATELET COUNT AUTOMATED 371 10*3/uL (130-400); RED BLOOD COUNT 4.78 10*6/uL (4.10-5.10); RED CELL DISTRI WIDTH 13.2 % (0-14.5); WHITE BLOOD COUNT 16.4 10*3/uL (4.8-10.8)
[2022-11-13 10:20] LABS: MANUAL DIFF REFLEX YES
[2022-11-13 10:33] LABS: BILIRUBIN Negative (Negative); BLOOD Negative (Negative); CLARITY Cloudy (Clear); COLOR Dark Yellow (Yellow); GLUCOSE Negative (Negative); KETONE Negative (Negative); LEUKO ESTERASE Trace (Negative); NITRITE Negative (Negative); PH 5.5 (4.5-8.0); SPECIFIC GRAVITY >= 1.030 (1.001-1.030)
[2022-11-13 10:42] LABS: URINE AMPHETAMINES Positive (1000ng/ml); URINE BARBITURATES Negative (200ng/ml); URINE BENZODIAZEPINES Negative (200ng/ml); URINE CANNABINOIDS (THC) Positive (50ng/ml); URINE COCAINE Positive (300ng/ml); URINE METHADONE Negative (300ng/ml); URINE OPIATES Negative (300ng/ml); URINE PHENCYCLIDINE Negative (25ng/ml)
[2022-11-13 10:43] LABS: EPITHELIAL CELLS 21-30; MUCOUS 2+
[2022-11-13 10:44] LABS: ALKALINE PHOSPHATASE 78 U/L (46-116); BASOPHILS 2 % (0-1); BUN 12 mg/dl (9-23); CHLORIDE 105 mmol/L (98-107); CPK 524 U/L (34-171); ETHYL ALCOHOL 3.2 mg/dl (<3); PLATELET SUFFICIENCY NORMAL (NORMAL); POTASSIUM 3.4 mmol/L (3.4-5.1); SGPT/ALT 60 U/L (10-49); TOTAL CELLS COUNTED 100 #CELLS
== END 2022-11-13 20:49 | disposition home or self-care (01) ==
LOC: ED 09:27
PROVIDERS: Internal Medicine
DX: F25.0 Schizoaffective disorder, bipolar type (principal); F15.10 Other stimulant abuse, uncomplicated; I10 Essential (primary) hypertension; J44.9 Chronic obstructive pulmonary disease, unspecified; Z79.899 Other long term (current) drug therapy; Z20.822 Contact with and (suspected) exposure to COVID-19

== ENCOUNTER 2022-11-16 09:58 | Emergency (ER) | payer OTHER ==
[~2022-11-16] VITALS: Ht 144.7 cm; Wt 52.2 kg
[2022-11-16 10:37] VITALS: BP 142/78
== END 2022-11-16 11:25 | disposition left against medical advice (07) ==
LOC: ED 09:58
DX: R52 Pain, unspecified (principal); Z53.21 Procedure and treatment not carried out due to patient leaving prior to being seen by health care provider

== ENCOUNTER 2022-11-17 00:22 | Emergency (ER) | payer OTHER ==
[~2022-11-17] VITALS: Ht 144.7 cm; Wt 70.8 kg
[2022-11-17 00:39] VITALS: BP 109/50
[2022-11-17 00:54] LABS: BASO % 0.3 % (0.0-1.0); EOS # 0.4 10*3/uL (0.0-0.4); EOS % 2.9 % (1.0-4.0); HEMATOCRIT 40.9 % (37.0-47.0); LYMPH # 4.5 10*3/uL (1.3-4.4); LYMPH % 34.7 % (27.0-41.0); MEAN CELL VOLUME 91.9 fl (81.0-99.0); MEAN CORPUSCULAR HGB 31.2 pg (27.0-31.0); MEAN PLATELET VOLUME 10.5 fl (9.6-12.3); MONO # 0.9 10*3/uL (0.1-1.0); MONO % 7.2 % (3.0-9.0); NEUT # 7.1 10*3/uL (2.3-7.9); NEUT % 54.5 % (47.0-73.0); PLATELET COUNT AUTOMATED 314 10*3/uL (130-400); RED BLOOD COUNT 4.45 10*6/uL (4.10-5.10); RED CELL DISTRI WIDTH 13.2 % (0-14.5)
[2022-11-17 01:16] LABS: ALKALINE PHOSPHATASE 73 U/L (46-116); BUN 11 mg/dl (9-23); CHLORIDE 106 mmol/L (98-107); LIPASE 46 U/L (12-53); POTASSIUM 3.5 mmol/L (3.4-5.1); SGPT/ALT 45 U/L (10-49); TOTAL PROTEIN 6.6 gm/dL (6.0-8.0)
[2022-11-17 01:27] LABS: BILIRUBIN Negative (Negative); BLOOD Negative (Negative); CLARITY Clear (Clear); COLOR Yellow (Yellow); GLUCOSE Negative (Negative); KETONE Trace (Negative); LEUKO ESTERASE Negative (Negative); NITRITE Negative (Negative); SPECIFIC GRAVITY 1.025 (1.001-1.030)
[2022-11-17 01:55] LABS: MUCOUS 1+; RBC 0-2 rbc/hpf (0-2); WBC 0-2 wbc/hpf (0-5)
[2022-11-17 02:04] LABS: CPK 141 U/L (34-171)
== END 2022-11-17 03:16 | disposition home or self-care (01) ==
LOC: ED 00:22
PROVIDERS: Emergency Medicine
DX: R52 Pain, unspecified (principal); N83.8 Other noninflammatory disorders of ovary, fallopian tube and broad ligament; I10 Essential (primary) hypertension; J44.9 Chronic obstructive pulmonary disease, unspecified; Z98.51 Tubal ligation status; Z98.890 Other specified postprocedural states; F10.10 Alcohol abuse, uncomplicated; Z72.0 Tobacco use; F19.10 Other psychoactive substance abuse, uncomplicated

== ENCOUNTER 2022-11-17 05:47 | Emergency (ER) | payer OTHER ==
[~2022-11-17] VITALS: Ht 162.5 cm; Wt 68.0 kg
[2022-11-17 06:10] VITALS: BP 143/81
[2022-11-17 07:06] LABS: BASO % 0.4 % (0.0-1.0); EOS # 0.3 10*3/uL (0.0-0.4); EOS % 3.1 % (1.0-4.0); HEMATOCRIT 39.8 % (37.0-47.0); LYMPH # 3.5 10*3/uL (1.3-4.4); LYMPH % 31.9 % (27.0-41.0); MEAN CELL VOLUME 93.4 fl (81.0-99.0); MEAN CORPUSCULAR HGB CONC 33.2 g/dl (33.0-37.0); MEAN PLATELET VOLUME 11.1 fl (9.6-12.3); MONO # 0.8 10*3/uL (0.1-1.0); MONO % 6.9 % (3.0-9.0); NEUT # 6.3 10*3/uL (2.3-7.9); NEUT % 57.3 % (47.0-73.0); PLATELET COUNT AUTOMATED 294 10*3/uL (130-400); RED BLOOD COUNT 4.26 10*6/uL (4.10-5.10); RED CELL DISTRI WIDTH 13.3 % (0-14.5)
[2022-11-17 07:29] LABS: ALKALINE PHOSPHATASE 64 U/L (46-116); BUN 9 mg/dl (9-23); CHLORIDE 108 mmol/L (98-107); CPK 122 U/L (34-171); POTASSIUM 3.7 mmol/L (3.4-5.1); SGPT/ALT 42 U/L (10-49); TOTAL PROTEIN 5.9 gm/dL (6.0-8.0)
[2022-11-17 07:38] LABS: ETHYL ALCOHOL < 3.0 mg/dl (<3)
[2022-11-17 12:50] LABS: URINE AMPHETAMINES Negative (1000ng/ml); URINE BARBITURATES Negative (200ng/ml); URINE BENZODIAZEPINES Negative (200ng/ml); URINE CANNABINOIDS (THC) Negative (50ng/ml); URINE COCAINE Negative (300ng/ml); URINE METHADONE Negative (300ng/ml); URINE OPIATES Negative (300ng/ml); URINE PHENCYCLIDINE Negative (25ng/ml)
[2022-11-17 13:08] LABS: BILIRUBIN Negative (Negative); BLOOD Negative (Negative); CLARITY Clear (Clear); COLOR Yellow (Yellow); GLUCOSE Negative (Negative); KETONE Negative (Negative); LEUKO ESTERASE Negative (Negative); NITRITE Negative (Negative); PH 5.5 (4.5-8.0); UROBILINOGEN 0.2 E.U./dl (0.0-1.0)
[2022-11-17 13:29] LABS: RBC 0-2 rbc/hpf (0-2); WBC 0-2 wbc/hpf (0-5)
== END 2022-11-17 17:01 | disposition short-term general hospital (02) ==
LOC: ED 05:47
PROVIDERS: Emergency Medicine
DX: F25.9 Schizoaffective disorder, unspecified (principal); R45.851 Suicidal ideations; I10 Essential (primary) hypertension; J44.9 Chronic obstructive pulmonary disease, unspecified; Z98.890 Other specified postprocedural states; Z98.51 Tubal ligation status; F19.10 Other psychoactive substance abuse, uncomplicated; Z72.0 Tobacco use; F10.10 Alcohol abuse, uncomplicated